=== PATIENT | female | born 2000 | race Caucasian/White ===

== ENCOUNTER 2020-08-24 12:53 | Emergency (ER) | payer OTHER, SELFPAY ==
[2020-08-24 12:54] VITALS: BP 156/67; PULSE 88; RESP 16; TEMP 36.4; O2SAT 100; BMI 36.6
--- NOTE | 2020-08-24 13:09 | ED.DCSUM_ITS ---
History of Present Illness Chief Complaint: Head Injury Informant: Patient Narrative: 19-year-old female states that on Sunday she hit her head on the bottom of her roommates bed. She states she had a goose egg near the vertex of her scalp. Since that time she has had nausea and dizziness and difficulty concentrating in class. [facility] who felt that since it is been so long with symptoms that she should come to emergency. No seizures. She has been able to sleep but still feels tired during the day. 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 Past Medical History - Allergies and Home Meds Allergies/Adverse Reactions: Allergies No Known Allergies Allergy (Verified 08/24/20 12:56) Prior records reviewed: Yes Past Medical History: None Surgical History: noncontributory Lives: - - [facility] Student Smoking Status: Never smoker Drugs: None Review of Systems General: Denies: Chills, Fever, Sweats Eyes: Denies: Visual changes - bilaterally, Diplopia ENT: Denies: Rhinorrhea, Sore throat Cardiovascular: Denies: Chest pain, Palpitations Respiratory: Denies: Dyspnea, Cough, Dyspnea on exertion Gastrointestinal: Reports: Nausea. Denies: Abdominal pain, Vomiting, Diarrhea, Melena, Hematochezia Genitourinary: Denies: Dysuria, Hematuria, Frequency Musculoskeletal: Denies: Back pain, Extremity Pain Skin: Denies: Rash, Wounds Neurological: Reports: Headache. Denies: Weakness, Numbness Physical Exam Vital Signs/Narrative: Vital Signs Temp Pulse Resp BP Pulse Ox 08/24/20 12:54 97.5 F L 88 16 156/67 H 100 Inital Vital Signs reviewed: Yes General: Well nourished, Well developed, No Acute Distress Head: Normocephalic, Atraumatic Eyes: Perrl, EOMI ENT: Moist mucous membranes, No rhinorrhea Neck: Supple, Nontender Cardiovascular: Regular rate, Regular rhythm, No murmurs Respiratory: No distress, CTA bilaterally, Chest nontender Abdomen: Soft, Nontender, Nondistended, Normal bowel sounds Back: Nontender, Normal Inspection Extremities: Nontender, No edema Skin: Normal color, No rash Neurological: Alert, Oriented x3, Cranial nerves II-XII grossly intact, Normal Strength, Normal Sensation, Normal Gait, - - normal FTN Psychological: Normal affect, Normal Mood ED Disposition - Plan for ED Patient: Disposition: Home or Assisted Living Diagnosis: Mild concussion Instructions: ED Concussion [facility] -
== END 2020-08-24 13:42 | disposition home or self-care (01) ==
LOC: ED 13:42
PROVIDERS: Emergency Provider Emergency Medicine
DX: S06.0X9A Concussion with loss of consciousness of unspecified duration, initial encounter (principal); W22.8XXA Striking against or struck by other objects, initial encounter
CPT/HCPCS: 99283

== ENCOUNTER 2021-12-28 14:39 | Outpatient (CLI) | payer BC, SELFPAY | END 2021-12-28 23:59 | disposition short-term general hospital (02) | LOC: IMMUN 14:43 | PROVIDERS: Visit Provider Family Medicine | DX: Z23 Encounter for immunization (principal) ==

== ENCOUNTER → 2025-03-12 | Outpatient (CLI) | payer OTHER, SELFPAY ==
[2025-03-12 17:56] LABS: Erythrocyte Sedimentation Rate 10 mm/hr (0-30)
[2025-03-12 18:04] LABS: Absolute Lymphocyte Count 2.27 X10^3/uL (0.83-4.51); Absolute Neutrophil Count 1.6 X10^3/uL (2.0-7.7); Basophil# 0.03 X10^3/uL; Basophil% 0.7 % (0-1); Eosinophil# 0.04 X10^3/uL; Eosinophils% 0.9 % (0-5); Hematocrit 38.7 % (37-47); Lymphocyte # 2.27 X10^3/ul (0.83-4.51); Mean Corp Hgb Conc 33.6 g/dL (32-36); Mean Corpuscular Hgb 28.6 pg (27.0-32.0); Mean Corpuscular Volume 85.1 fL (81-99); Mean Platelet Vol. 10.6 fl (6.2-12.0); Monocyte# 0.29 X10^3/uL; Monocyte% 6.8 % (0-10); NRBC Flagged by Analyzer 0 % (0-5); Neutrophil # 1.63 X10^3/uL (2.7-7.7); Neutrophil % 38.1 % (47-70); POSITIVE MORPHOLOGY YES; Platelet Count 169 K/mm3 (150-450); RBC Distribution Width CV 13.6 % (11.6-14.6); RBC Distribution Width SD 42.2 fl (35.1-43.9); Red Blood Count 4.55 M/mm3 (4.2-5.4); White Blood Count 4.3 K/mm3 (4.4-11.0)
[2025-03-12 18:09] LABS: Differential Indicated SCAN CRITERIA MET
[2025-03-12 18:54] LABS: Reactive Lymphocyte 1+
[2025-03-12 19:47] LABS: ALB/GLOB Ratio 1.6 RATIO (0.9-2.4); AST(SGOT) 81 U/L (<=31); Alanine Aminotransfer ALT/SGPT 88 U/L (<=34); Albumin, Serum 4.2 g/dL (3.5-5.0); Alkaline Phosphatase 81 U/L (35-104); Anion Gap 14 (5-15); BUN 8 mg/dL (4-19); BUN/Creat Ratio 10.4 RATIO (10-20); Calcium,Total 9.3 mg/dL (7.6-11.0); Carbon Dioxide 22.5 mmol/L (21.0-32.0); Chloride 102 mmol/L (98-108); Creatinine, Serum 0.78 mg/dL (0.70-1.20); EST Glomerular Filtration Rate 109 (>60); Globulin 2.6 g/dL (2.2-4.2); Glucose 108 mg/dL (70-99); Potassium 3.9 mmol/L (3.3-5.1); Protein, Total 6.8 g/dL (5.9-8.4); Sodium Level 138 mmol/L (133-145); Total Bilirubin 0.98 mg/dL (0.00-1.30)
[2025-03-16 13:08] LABS: ANTINUCLEAR ANTIBODIES DIRECT Negative (Negative)
== END | disposition home or self-care (01) ==
LOC: BFHLAB 14:24
PROVIDERS: PCP Family Medicine; Visit Provider Family Medicine
DX: Z00.00 Encounter for general adult medical examination without abnormal findings (principal); M79.10 Myalgia, unspecified site; R53.83 Other fatigue
CPT/HCPCS: 36415; 80053; 84443; 85025; 85652; 86038; 86140

== ENCOUNTER → 2025-06-29 | Outpatient (CLI) | payer OTHER, SELFPAY ==
[2025-06-29 17:42] LABS: Hematocrit 38.3 % (37-47); Hemoglobin 12.8 g/dL (12.0-15.0); Immature Granulocytes Count 0.020 X10^3/uL (0.0-0.0); Mean Corp Hgb Conc 33.4 g/dL (32-36); Mean Corpuscular Volume 83.8 fL (81-99); Mean Platelet Vol. 10.4 fl (6.2-12.0); NRBC Flagged by Analyzer 0 % (0-5); Platelet Count 292 K/mm3 (150-450); RBC Distribution Width CV 13.5 % (11.6-14.6); RBC Distribution Width SD 41.1 fl (35.1-43.9); Red Blood Count 4.57 M/mm3 (4.2-5.4); White Blood Count 6.0 K/mm3 (4.4-11.0)
[2025-06-29 18:14] LABS: AST(SGOT) 27 U/L (<=31); Alanine Aminotransfer ALT/SGPT 41 U/L (<=34); Albumin, Serum 4.3 g/dL (3.5-5.0); Alkaline Phosphatase 72 U/L (35-104); Anion Gap 14 (5-15); BUN 14 mg/dL (4-19); BUN/Creat Ratio 18.6 RATIO (10-20); CRP 9.31 mg/L (0.0-3.0); Calcium,Total 9.7 mg/dL (7.6-11.0); Carbon Dioxide 22.7 mmol/L (21.0-32.0); Chloride 101 mmol/L (98-108); Globulin 2.6 g/dL (2.2-4.2); Glucose 107 mg/dL (70-99); Potassium 3.8 mmol/L (3.3-5.1)
--- OUTSIDE RECORDS SUMMARY | 2025-06-29 22:39 | XMS RPT_ITS | CCD ---
Author Organization [facility] Care Team Providers Care Prop Attendant Name Role Phone Rick Purvis Primary Care Provider RICK PURVIS Referring Unavailable HYUNRICK OLMOS Primary Care Unavailable RICK PURVIS Referring Unavailable HYUNRICK OLMOS Primary Care Unavailable VEDA CORADO Admitting Unavail able VEDA CORADO Attending Unavail able RICK PURVIS Primary Care Unavailable RICK PURVIS Referring Unavailable RICK PURVIS Primary Care Unavailable Rick Purvis DO Primary Care Provider Dr. Che Aguilar MD Primary Care Provider Dr. Che Aguilar MD Attending Provider Che Aguilar Attending Unavailable Che Aguilar Primary Care Unavailable Allergies Allergy Classification Reported Allergen(s) Allergy Type Date of Onset Reaction(s) Facility (1 source) Ethinyl Estradiol / norelgestromin Drug Allergy 11-10-2022 Headaches [facility] Medications Current Medications Medication Drug Class(es) Dates Sig (Normalized) Sig (Original) acetaminophen 300 mg / codeine phosphate 30 mg oral tablet (2 sources) Opioid Agonist Start: 02-10-2016 take 1 tablet by mouth every four hours as needed for pain acetaminophen-cod eine (TYLENOL/CODEINE #3) 300-30 MG per tablet Take 1 tablet by mouth every 4 hours as needed for Pain 12 tablet 0 02/10/2016 Active citalopram 20 mg oral tablet (3 sources) Serotonin Reuptake Inhibitor Start: 02-24-2023 take 1 tablet by mouth once daily citalopram (CELEXA) 20 MG tablet Take 1 tablet by mouth daily 0 02/24/2023 Active Start: 04-30-2022 citalopram (CE AMY) 10 MG tablet 20 mg 0 04/30/2022 Active elagolix 150 mg oral tablet (1 source) Start: 04-25-2023 take 1 tablet by mouth once daily Elagolix Sodium (ORILISSA) 150 MG TABS Take 150 mg by mouth daily 30 tablet 3 04/25/2023 Active ketorolac tromethamine 10 mg oral tablet (1 source) Nonsteroidal Anti-inflammatory Drug, Cyclooxygenase Inhibitor Start: 04-13-2023 End: 04-12-2024 take 1 tablet by mouth every six hours as needed for pain ketorolac (TORADOL) 10 MG tablet Take 1 tablet by mouth every 6 hours as needed for Pain 20 tablet 0 04/13/2023 04/12/2024 Active loratadine 10 mg oral capsule (5 sources) take 1 capsule by mouth once daily loratadine (CLARITIN) 10 MG capsule Take 10 mg by mouth daily 0 Active naproxen 500 mg oral tablet (2 sources) Nonsteroidal Anti-inflammatory Drug Start: 02-10-2016 take 1 tablet by mouth twice daily naproxen (NAPROSYN) 500 MG tablet Take 1 tablet by mouth 2 times daily 10 tablet 0 02/10/2016 Active Probiotic Product (PROBIOTIC PO) (1 source) Probiotic Product (PROBIOTIC PO) Take by mouth 0 Active Problems Problem Classification Problem Date Documented Date Episodic/Chronic Abdominal pain (1 source) Right lower quadrant pain; Translations: [Right lower quadrant pain] Episodic Complications of surgical procedures or medical care (2 sources) Unspecified adverse effect of drug or medicament, initial encounter; Translations: [Unspecified adverse effect of drug or medicament, initial encounter] Onset: 04-27-2023 Episodic Headache; including migraine (1 source) Headache; Translations: [Nonintractable headache, unspecified chronicity pattern, unspecified headache type] Episodic Headache; including migraine (1 source) Headache; including migraine; Translations: [Headache, unspecified] Onset: 10-02-2022 Intracranial injury (1 source) Concussion injury of body structure; Translations: [Concussion] 08-25-2020 Episodic Other nervous system disorders (1 source) Other acute postprocedural pain; Translations: [Other acute postprocedural pain] Onset: 04-13-2023 Episodic Results Test Name Value Interpretation Reference Range Facility ANTINUCLEAR ANTIBODIES DIREC Ton 03-16-2025 EVERARDO,DIRECT Negative Normal Negative [facility] Comment on above: Result Comment: Perf ormed at: [email or web address] [place] [address] [place], [place] [id number] Law Enforcement Officer: Jarod Devlin PhD, Phone: [phone] Performed By: #### L 3100.5475, L500.4050, L100.0100, L501.6710, L501.9520, L101.9900 #### [facility] [address] [place], [place], [id number] EVERARDO serumOrdered By: Che Aguilar on 03-12-2025 Anti-Nuclear Antibody Screen Negative Negative [facility] Comment on above: Performed at: [email or web address] [id number] [place], [place] [id number] Director: Jarod Devlin PhD, Phone: [phone] Absolute neutrophil countOrd ered By: Che Aguilar on 03-12-2025 Neutrophils (Bld) [#/Vol] 1.6 10*3/uL Low 2.0-7.7 [facility] Anion gap in Serum or Plasma Ordered By: Che Aguilar on 03-12-2025 Anion gap [Moles/Vol] 14 mmol/L 5-15 [facility] BUN/creatinine ratioOrdered By: Che Aguilar on 03-12-2025 Urea nitrogen/Creatinine [Mass ratio] 10.4 mg/mg 10-20 [facility] Basophil percentageOrdered B y: Che Aguilar on 03-12-2025 Basophils/100 WBC (Bld) 0.7 % 0-1 [facility] Bilirubin, totalOrdered By: Che Aguilar on 03-12-2025 Bilirubin [Mass/Vol] 0.98 mg/dL 0.00-1.30 [facility] CBC W/Diff, Automatedon 02-24 REACTIVE LYMPH 1+ Normal [facility] Comment on above: Performed By: #### L 3100.5475, L500.4050, L100.0100, L501.6710, L501.9520, L101.9900 #### [facility] [address] [place], [address] CRPon 03-12-2025 C-REACTIVE PROT 22.10 mg/L High 0.0-3.0 [facility] Comment on above: Performed By: #### L 3100.5475, L500.4050, L100.0100, L501.6710, L501.9520, L101.9900 #### [facility] [address] [place], [address] CRP [Mass/Vol]Ordered By: Ermias Aguilar on 03-12-2025 C-Reactive Protein Extended Range 22.10 mg/L High 0.0-3.0 [facility] Carbon dioxide, total [Moles /volume] in Central venous bloodOrdered By: Che Aguilar on 03-12-2025 CO2 [Moles/Vol] 22.5 mmol/L 21.0-32.0 [facility] Chloride assayOrdered By: Ermias Aguilar on 03-12-2025 Chloride [Moles/Vol] 102 mmol/L 98-108 [facility] Comprehensive Metabolic Prof ilon 03-12-2025 Albumin [Mass/Vol] 4.2 g/dL Normal 3.5-5.0 [facility] Comment on above: Performed By: #### L 3100.5475, L500.4050, L100.0100, L501.6710, L501.9520, L101.9900 #### [facility] [address] [place], [address] Albumin/Globulin [Mass ratio] 1.6 {ratio} Normal 0.9-2.4 [facility] Comment on above: Performed By: #### L 3100.5475, L500.4050, L100.0100, L501.6710, L501.9520, L101.9900 #### [facility] [address] [place], [address] ALK PHOS 81 U/L Normal 35-104 [facility] Comment on above: Performed By: #### L 3100.5475, L500.4050, L100.0100, L501.6710, L501.9520, L101.9900 #### [facility] [address] [place], [address] ALT [Catalytic activity/Vol] 88 U/L High <=34 [facility] Comment on above: Performed By: #### L 3100.5475, L500.4050, L100.0100, L501.6710, L501.9520, L101.9900 #### [facility] [address] [place], [address] AST [Catalytic activity/Vol] 81 U/L High <=31 [facility] Comment on above: Performed By: #### L 3100.5475, L500.4050, L100.0100, L501.6710, L501.9520, L101.9900 #### [facility] [address] [place], [address] Bilirubin [Mass/Vol] 0.98 mg/dL Normal 0.00-1.30 [facility] Comment on above: Performed By: #### L 3100.5475, L500.4050, L100.0100, L501.6710, L501.9520, L101.9900 #### [facility] [address] [place], [address] BUN/CRE 10.4 RATIO Normal 10-20 [facility] Comment on above: Performed By: #### L 3100.5475, L500.4050, L100.0100, L501.6710, L501.9520, L101.9900 #### [facility] [address] [place], [address] Calcium [Mass/Vol] 9.3 mg/dL Normal 7.6-11.0 [facility] Comment on above: Performed By: #### L 3100.5475, L500.4050, L100.0100, L501.6710, L501.9520, L101.9900 #### [facility] [address] [place], [address] Chloride [Moles/Vol] 102 mmol/L Normal 98-108 [facility] Comment on above: Performed By: #### L 3100.5475, L500.4050, L100.0100, L501.6710, L501.9520, L101.9900 #### [facility] [address] [place], [address] CO2 [Moles/Vol] 22.5 mmol/L Normal 21.0-32.0 [facility] Comment on above: Performed By: #### L 3100.5475, L500.4050, L100.0100, L501.6710, L501.9520, L101.9900 #### [facility] [address] [place], [address] Creatinine [Mass/Vol] 0.78 mg/dL Normal 0.70-1.20 [facility] Comment on above: Performed By: #### L 3100.5475, L500.4050, L100.0100, L501.6710, L501.9520, L101.9900 #### [facility] [address] [place], [address] GAP 14 Normal 5-15 [facility] Comment on above: Performed By: #### L 3100.5475, L500.4050, L100.0100, L501.6710, L501.9520, L101.9900 #### [facility] [address] [place], [address] GFR/1.73 sq M.predicted among non-blacks MDRD (S/P/Bld) [Vol rate/Area] 109 mL/min/{1.73_m2} Normal >60 [facility] Comment on above: Result Comment: mL/m in/1.73m2 CKD-EPI Creatinine Equation (2020) Performed By: #### L 3100.5475, L500.4050, L100.0100, L501.6710, L501.9520, L101.9900 #### [facility] [address] [place], [address] Globulin (S) [Mass/Vol] 2.6 g/dL Normal 2.2-4.2 [facility] Comment on above: Performed By: #### L 3100.5475, L500.4050, L100.0100, L501.6710, L501.9520, L101.9900 #### [facility] [address] [place], [address] Glucose [Mass/Vol] 108 mg/dL High 70-99 [facility] Comment on above: Performed By: #### L 3100.5475, L500.4050, L100.0100, L501.6710, L501.9520, L101.9900 #### [facility] [address] [place], [address] Potassium [Moles/Vol] 3.9 mmol/L Normal 3.3-5.1 [facility] Comment on above: Performed By: #### L 3100.5475, L500.4050, L100.0100, L501.6710, L501.9520, L101.9900 #### [facility] [address] [place], [address] Sodium [Moles/Vol] 138 mmol/L Normal 133-145 [facility] Comment on above: Performed By: #### L 3100.5475, L500.4050, L100.0100, L501.6710, L501.9520, L101.9900 #### [facility] [address] [place], [address] T PROT 6.8 g/dL Normal 5.9-8.4 [facility] Comment on above: Performed By: #### L 3100.5475, L500.4050, L100.0100, L501.6710, L501.9520, L101.9900 #### [facility] [address] [place], [address] Urea nitrogen [Mass/Vol] 8 mg/dL Normal 4-19 [facility] Comment on above: Performed By: #### L 3100.5475, L500.4050, L100.0100, L501.6710, L501.9520, L101.9900 #### [facility] [address] [place], [place], [address] Eosinophil percentageOrdered By: Che Aguilar on 03-12-2025 Eosinophils/100 WBC (Bld) 0.9 % 0-5 [facility] Erythrocyte Sed Rateon 03-12 SED RATE 10 mm/hr Normal 0-30 [facility] Comment on above: Performed By: #### L 3100.5475, L500.4050, L100.0100, L501.6710, L501.9520, L101.9900 #### [facility] [address] [place], [address] Erythrocyte distribution wid th (RBC) [Ratio]Ordered By: Che Aguilar on 03-12-2025 Erythrocyte distribution width (RBC) [Entitic vol] 42.2 fL 35.1-43.9 [facility] Erythrocyte distribution wid th ratioOrdered By: Che Aguilar on 03-12-2025 Erythrocyte distribution width (RBC) [Ratio] 13.6 % 11.6-14.6 [facility] Erythrocyte sedimentation ra teOrdered By: Che Aguilar on 03-12-2025 ESR (Bld) [Velocity] 10 mm/h 0-30 [facility] GFR/1.73 sq M.predicted emi g non-blacks MDRD (S/P/Bld) [Vol rate/Area]Ordered By: Che Aguilar on 03-12-2025 Estimated GFR (MDRD) Non-Af Amer 109 >60 [facility] Comment on above: mL/min/1.73m2 CKD-EP I Creatinine Equation (2020) Hematocrit Auto (Bld) [Volum e fraction]Ordered By: Che Aguilar on 03-12-2025 Hematocrit (Bld) [Volume fraction] 38.7 % 37-47 [facility] Hemoglobin measurementOrdere d By: Che Aguilar on 03-12-2025 Hemoglobin (Bld) [Mass/Vol] 13.0 g/dL 12.0-15.0 [facility] Immature granulocytes/100 WB C Auto (Bld)Ordered By: Che Aguilar on 03-12-2025 Immature granulocytes/100 WBC (Bld) 0.500 % 0.0-0.9 [facility] Comment on above: IG% - Immature Granu locytes (promyelocytes, myelocytes and metamyelocytes) > 1% indicates that a LEFT SHIFT is Present. Laboratory - Chemistry and C hemistry - challengeOrdered By: Che Aguilar on 03-12-2025 AST [Catalytic activity/Vol] 81 U/L High <32 [facility] Lymphocytes Auto (Unsp spec) [#/Vol]Ordered By: Che Aguilar on 03-12-2025 Lymphocytes (Bld) [#/Vol] 2.27 10*3/uL 0.83-4.51 [facility] Lymphocytes/100 WBC Auto (Un sp spec)Ordered By: Che Aguilar on 03-12-2025 Lymphocytes/100 WBC (Bld) 53.0 % High 19-41 [facility] MCV (mean corpuscular volume ) determinationOrdered By: Che Aguilar on 03-12-2025 MCV (RBC) [Entitic vol] 85.1 fL 81-99 [facility] Mean corpuscular hemoglobin (MCH) determinationOrdered By: Che Aguilar on 03-12-2025 MCH (RBC) [Entitic mass] 28.6 pg 27.0-32.0 [facility] Mean corpuscular hemoglobin concentration (MCHC) determinationOrdered By: Che Aguilar on 03-12-2025 MCHC (RBC) [Mass/Vol] 33.6 g/dL 32-36 [facility] Mean platelet volume determi nationOrdered By: Che Aguilar on 03-12-2025 Platelet mean volume (Bld) [Entitic vol] 10.6 fL 6.2-12.0 [facility] Monocyte percentageOrdered B y: Che Aguilar on 03-12-2025 Monocytes/100 WBC (Bld) 6.8 % 0-10 [facility] Neutrophil percentageOrdered By: Che Aguilar on 03-12-2025 Neutrophils/100 WBC (Bld) 38.1 % Low 47-70 [facility] Nucleated red blood cell per centageOrdered By: Che Aguilar on 03-12-2025 Nucleated RBC/100 WBC (Bld) [Ratio] 0 % 0-5 [facility] Platelet countOrdered By: Ermias Aguilar on 03-12-2025 Platelets (Bld) [#/Vol] 169 10*3/uL 150-450 [facility] Potassium (Unsp spec) [Mass/ Vol]Ordered By: Che Aguilar on 03-12-2025 Potassium [Moles/Vol] 3.9 mmol/L 3.3-5.1 [facility] RBC Auto (Bld) [#/Vol]Ordere d By: Che Aguilar on 03-12-2025 RBC (Bld) [#/Vol] 4.55 10*6/uL 4.2-5.4 [facility] Reactive lymphocyte countOrd ered By: Che Aguilar on 03-12-2025 Reactive Lymphocytes 1+ [facility] Serum creatinine measurement (mass/volume)Ordered By: Che Aguilar on 03-12-2025 Creatinine [Mass/Vol] 0.78 mg/dL 0.70-1.20 [facility] Serum globulin measurementOr dered By: Che Aguilar on 03-12-2025 Globulin (S) [Mass/Vol] 2.6 g/dL 2.2-4.2 [facility] Serum glucose measurement (m ass/volume)Ordered By: Che Aguilar on 03-12-2025 Glucose [Mass/Vol] 108 mg/dL High 70-99 [facility] Serum or plasma alanine king otransferase (ALT) measurementOrdered By: Che Aguilar on 03-12-2025 ALT [Catalytic activity/Vol] 88 U/L High <35 [facility] Serum or plasma albumin cesia urement (mass/volume)Ordered By: Che Aguilar on 03-12-2025 Albumin [Mass/Vol] 4.2 g/dL 3.5-5.0 [facility] Serum or plasma albumin/glob ulin mass ratioOrdered By: Che Aguilar on 03-12-2025 Albumin/Globulin [Mass ratio] 1.6 {ratio} 0.9-2.4 [facility] Serum or plasma alkaline nathalie sphatase measurementOrdered By: Che Aguilar on 03-12-2025 ALP [Catalytic activity/Vol] 81 U/L 35-104 [facility] Serum or plasma calcium cesia urement (mass/volume)Ordered By: Che Aguilar on 03-12-2025 Calcium [Mass/Vol] 9.3 mg/dL 7.6-11.0 [facility] Serum or plasma urea nitroge n measurement (mass/volume)Ordered By: Che Aguilar on 03-12-2025 Urea nitrogen [Mass/Vol] 8 mg/dL 4-19 [facility] Sodium levelOrdered By: Lucie Aguilar on 03-12-2025 Sodium [Moles/Vol] 138 mmol/L 133-145 [facility] TSH DL <= 0.005 mIU/L QnOrde red By: Che Aguilar on 03-12-2025 Thyroid Stimulating Hormone (TSH) 2.580 uIU/mL 0.300-4.200 [facility] Thyroid Stim Hormone (TSH)on 03-12-2025 TSH 2.580 uIU/mL Normal 0.300-4.200 [facility] Comment on above: Performed By: #### L 8240.5469, L500.4050, L100.0100, L501.6748, L501.9334, L101.9900 #### [facility] [address] [place], [address] Total proteinOrdered By: Felipe Barnhartmihir on 03-12-2025 Protein [Mass/Vol] 6.8 g/dL 5.9-8.4 [facility] White blood cell (WBC) count Ordered By: Che Jeff on 03-12-2025 WBC (Bld) [#/Vol] 4.3 10*3/uL Low 4.4-11.0 [facility] Comp Metabolic Profon 2022 Albumin [Mass/Vol] 4.7 g/dL Normal 3.5-5.2 [facility] Comment on above: Performed By: #### C P #### [facility] [address] [place] [address] Law Enforcement Officer: Claudio Rico MD Albumin/Glob Ratio 1.7 Normal 1.0-2.5 [facility] Comment on above: Performed By: #### C P #### [address] [place] [address] Law Enforcement Officer: Claudio Rico MD Alkaline Phos 75 U/L Normal 35-104 [facility] Comment on above: Performed By: #### C P #### [facility] [address] [place] [address] Law Enforcement Officer: Claudio Rico MD ALT [Catalytic activity/Vol] 21 U/L Normal 5-33 [facility] Comment on above: Performed By: #### C P #### [facility] [address] [place] [address] Law Enforcement Officer: Claudio Rcio MD Anion gap [Moles/Vol] 10 mmol/L Normal 9-17 [facility] Comment on above: Performed By: #### C P #### [facility] [address] [place], [place] [address] Law Enforcement Officer: Claudio Rico MD AST [Catalytic activity/Vol] 21 U/L Normal <32 [facility] Comment on above: Performed By: #### C P #### [facility] [address] [place], [place] [id number] Law Enforcement Officer: Claudio Rico MD Bilirubin [Mass/Vol] 0.9 mg/dL Normal 0.3-1.2 [facility] Comment on above: Performed By: #### C P #### [facility] [address] [place], [place] [id number] Law Enforcement Officer: Claudio Rico MD BUN/CRE Ratio 19 Normal 9-20 [facility] Comment on above: Performed By: #### C P #### [facility] [address] [place], [place] [id number] Law Enforcement Officer: Claudio Rico MD Calcium [Mass/Vol] 9.7 mg/dL Normal 8.6-10.4 [facility] Comment on above: Performed By: #### C P #### [facility] [address] [place] [address] Law Enforcement Officer: Claudio Rioc MD Chloride [Moles/Vol] 104 mmol/L Normal 98-107 [facility] Comment on above: Performed By: #### C P #### [facility] [address] [place], [place] [id number] Law Enforcement Officer: Claudio Rico MD CO2 [Moles/Vol] 27 mmol/L Normal 20-31 [facility] Comment on above: Performed By: #### C P #### [facility] [address] [place], [place] [id number] Law Enforcement Officer: Claudio Rico MD Creatinine [Mass/Vol] 0.67 mg/dL Normal 0.50-0.90 [facility] Comment on above: Performed By: #### C P #### [facility] [address] [place] [address] Law Enforcement Officer: Claudio Rico MD GFR/1.73 sq M.predicted among non-blacks MDRD (S/P/Bld) [Vol rate/Area] mL/min/{1.73_m2} Normal >60 [facility] Comment on above: Result Comment: These results are not intended for use in patients <18 years of age. eGFR results are calculated without a race factor using the 2020 CKD-EPI equation. Careful clinical correlation is recommended, particularly when comparing to results calculated using previous equations. The CKD-EPI equation is less accurate in patients with extremes of muscle mass, extra-renal metabolism of creatine, excessive creatine ingestion, or following therapy that affects renal tubular secretion. Performed By: #### C P #### [facility] [address] [place] [address] Law Enforcement Officer: Claudio Rico MD Glucose [Mass/Vol] 88 mg/dL Normal 70-99 [facility] Comment on above: Performed By: #### C P #### [facility] [address] [place] [address] Law Enforcement Officer: Claudio Rico MD Potassium [Moles/Vol] 4.5 mmol/L Normal 3.7-5.3 [facility] Comment on above: Performed By: #### C P #### [facility] [address] [place] [address] Law Enforcement Officer: Claudio Rico MD Protein [Mass/Vol] 7.5 g/dL Normal 6.4-8.3 [facility] Comment on above: Performed By: #### C P #### [facility] [address] [place] [address] Law Enforcement Officer: Claudio Rico MD Sodium [Moles/Vol] 141 mmol/L Normal 135-144 [facility] Comment on above: Performed By: #### C P #### [facility] [address] [place], [place] [id number] Law Enforcement Officer: Claudio Rico MD Urea nitrogen [Mass/Vol] 13 mg/dL Normal 6-20 [facility] Comment on above: Performed By: #### C P #### [facility] [address] [place] [address] Law Enforcement Officer: Claudio Rico MD Comprehensive Metabolic Pane [facility] 04-27-2023 Albumin [Mass/Vol] 4.7 g/dL 3.5 - 5.2 g/dL [facility] Albumin/Globulin [Mass ratio] 1.7 {ratio} 1.0 - 2.5 [facility] ALP [Catalytic activity/Vol] 75 U/L 35 - 104 U/L [facility] ALT [Catalytic activity/Vol] 21 U/L 5 - 33 U/L [facility] Anion gap [Moles/Vol] 10 mmol/L 9 - 17 mmol/L [facility] AST [Catalytic activity/Vol] 21 U/L NINF - 32 U/L [facility] Bilirubin [Mass/Vol] 0.9 mg/dL 0.3 - 1 .2 mg/dL [facility] Calcium [Mass/Vol] 9.7 mg/dL 8.6 - 10. 4 mg/dL [facility] Chloride [Moles/Vol] 104 mmol/L 98 - 10 7 mmol/L [facility] CO2 [Moles/Vol] 27 mmol/L 20 - 31 mmol/L [facility] Creatinine [Mass/Vol] 0.67 mg/dL 0.50 - 0.90 mg/dL [facility] GFR/1.73 sq M.predicted MDRD (S/P/Bld) [Vol rate/Area] - PINF [facility] Comment on above: These results are not intended for use in patients <18 years of age. eGFR results are calculated without a race factor using the 2020 CKD-EPI equation. Careful clinical correlation is recommended, particularly when comparing to results calculated using previous equations. The CKD-EPI equation is less accurate in patients with extremes of muscle mass, extra-renal metabolism of creatine, excessive creatine ingestion, or following therapy that affects renal tubular secretion. Glucose [Mass/Vol] 88 mg/dL 70 - 99 mg/dL [facility] Potassium [Moles/Vol] 4.5 mmol/L 3.7 - 5.3 mmol/L [facility] Protein [Mass/Vol] 7.5 g/dL 6.4 - 8.3 g/dL [facility] Sodium [Moles/Vol] 141 mmol/L 135 - 144 mmol/L [facility] Urea nitrogen [Mass/Vol] 13 mg/dL 6 - 20 mg/d L [facility] Urea nitrogen/Creatinine [Mass ratio] 19 mg/mg 9 - 20 [facility] HCG, ,Urineon 04-13 Beta HCG ( test) Ql (U) Negative Normal NEG [facility] Comment on above: Result Comment: Spec imens with hCG levels near the threshold of the test (25 mIU/mL) may give a negative or indeterminate result. In such cases, another test should be performed with a new specimen in 48-72 hours. If early is suspected clinically in this setting, correlation with quantitative serum b-hCG level is suggested. [facility] [employer] has confirmed the use of plasma for this test. This has not been cleared or approved by the U.S. Food and Drug Administration. The FDA has determined that such clearance is not necessary. Performed By: #### U HCG #### [facility] [address] [place] [address] Law Enforcement Officer: Claudio Rico MD CT HEAD WO CONTRASTon 2021 CT HEAD WO CONTRAST EXAMINATION: CT OF THE HEAD WITHOUT CONTRAST 10/02/2022 5:34 pm TECHNIQUE: CT of the head was performed without the administration of intravenous contrast. Automated exposure control, iterative reconstruction, and/or weight based adjustment of the mA/kV was utilized to reduce the radiation dose to as low as reasonably achievable. COMPARISON: None. HISTORY: ORDERING SYSTEM PROVIDED HISTORY: Nonintractable headache, unspecified chronicity pattern, unspecified headache type TECHNOLOGIST PROVIDED HISTORY: Is the patient ?->No FINDINGS: BRAIN/VENTRICLES: There is no acute intracranial hemorrhage, mass effect, or midline shift. There is satisfactory overall sanchez-white matter differentiation. The ventricular structures are symmetric and unremarkable. The infratentorial structures are unremarkable. ORBITS: The visualized portion of the orbits demonstrate no acute abnormality. SINUSES: The visualized paranasal sinuses and mastoid air cells demonstrate no acute abnormality. SOFT TISSUES/SKULL: No acute abnormality of the visualized skull or soft tissues. IMPRESSION: No acute intracranial abnormality. Interpreted by: Peter Gaytan MD Signed by: Peter Gaytan MD 10/03/22 Final result Normal [facility] No acute intracranial abnormality. [facility] EXAMINATION: CT OF THE HEAD WITHOUT CONTRAST 10/02/2022 5:34 pm TECHNIQUE: CT of the head was performed without the administration of intravenous contrast. Automated exposure control, iterative reconstruction, and/or weight based adjustment of the mA/kV was utilized to reduce the radiation dose to as low as reasonably achievable. COMPARISON: None. HISTORY: ORDERING SYSTEM PROVIDED HISTORY: Nonintractable headache, unspecified chronicity pattern, unspecified headache type TECHNOLOGIST PROVIDED HISTORY: Is the patient ?->No FINDINGS: BRAIN/VENTRICLES: There is no acute intracranial hemorrhage, mass effect, or midline shift. There is satisfactory overall sanchez-white matter differentiation. The ventricular structures are symmetric and unremarkable. The infratentorial structures are unremarkable. ORBITS: The visualized portion of the orbits demonstrate no acute abnormality. SINUSES: The visualized paranasal sinuses and mastoid air cells demonstrate no acute abnormality. SOFT TISSUES/SKULL: No acute abnormality of the visualized skull or soft tissues. [facility] Peter Gaytan MD - 10/03/2022 EXAMINATION: CT OF THE HEAD WITHOUT CONTRAST 10/02/2022 5:34 pm TECHNIQUE: CT of the head was performed without the administration of intravenous contrast. Automated exposure control, iterative reconstruction, and/or weight based adjustment of the mA/kV was utilized to reduce the radiation dose to as low as reasonably achievable. COMPARISON: None. HISTORY: ORDERING SYSTEM PROVIDED HISTORY: Nonintractable headache, unspecified chronicity pattern, unspecified headache type TECHNOLOGIST PROVIDED HISTORY: Is the patient ?->No FINDINGS: BRAIN/VENTRICLES: There is no acute intracranial hemorrhage, mass effect, or midline shift. There is satisfactory overall sanchez-white matter differentiation. The ventricular structures are symmetric and unremarkable. The infratentorial structures are unremarkable. ORBITS: The visualized portion of the orbits demonstrate no acute abnormality. SINUSES: The visualized paranasal sinuses and mastoid air cells demonstrate no acute abnormality. SOFT TISSUES/SKULL: No acute abnormality of the visualized skull or soft tissues. IMPRESSION: No acute intracranial abnormality. [facility]EL [facility] [employer] Work Phone: CT HEAD WO CONTRASTOrdered B y: Peter Gaytan on 10-03-2022 [facility] [employer] Work Phone: CT HEAD WO CONTRASTon 2021 Radiology Study observation (narrative) [facility]EL [facility] Work Phone: Comp Metabolic Profon 2021 (cont.) Normal [facility] Comment on above: Result Comment: Aver age GFR for 20-29 years old: 116 mL/min/1.73sq m Chronic Kidney Disease: <60 mL/min/1.73sq m Kidney failure: <15 mL/min/1.73sq m eGFR calculated using average adult body mass. Additional eGFR calculator available at: http://www.[employer].RENTISH/multiple_crcl_2012.htm Performed By: #### C P #### [facility] [address] [place] [address] [place] [address] Law Enforcement Officer: Claudio Rico MD Albumin [Mass/Vol] 4.4 g/dL Normal 3.5-5.2 [facility] Comment on above: Performed By: #### C P #### [facility] [address] [place] [address] Law Enforcement Officer: Claudio Rico MD Albumin/Glob Ratio 1.7 Normal 1.0-2.5 [facility] Comment on above: Performed By: #### C P #### [address] [place] [address] Law Enforcement Officer: Claudio Rico MD Alkaline Phos 55 U/L Normal 35-104 [facility] Comment on above: Performed By: #### C P #### [facility] [address] [place], [place] [id number] Law Enforcement Officer: Claudio Rico MD ALT [Catalytic activity/Vol] 25 U/L Normal 5-33 [facility] Comment on above: Performed By: #### C P #### [facility] [address] [place], [place] [id number] Law Enforcement Officer: Claudio Rico MD Anion gap [Moles/Vol] 8 mmol/L Low 9-17 [facility] Comment on above: Performed By: #### C P #### [facility] [address] [place], [place] [id number] Law Enforcement Officer: Claudio Rico MD AST [Catalytic activity/Vol] 18 U/L Normal <32 [facility] Comment on above: Performed By: #### C P #### [facility] [address] [place], [place] [id number] Law Enforcement Officer: Claudio Rico MD Bilirubin [Mass/Vol] 0.48 mg/dL Normal 0.3-1.2 [facility] Comment on above: Performed By: #### C P #### [facility] [address] [place], [place] [id number] Law Enforcement Officer: Claudio Rico MD BUN/CRE Ratio 16 Normal 9-20 [facility] Comment on above: Performed By: #### C P #### [facility] [address] [place], [place] [id number] Law Enforcement Officer: Claudio Rico MD Calcium [Mass/Vol] 9.6 mg/dL Normal 8.6-10.4 [facility] Comment on above: Performed By: #### C P #### [facility] [address] [place], [place] [id number] Law Enforcement Officer: Claudio Rico MD Chloride [Moles/Vol] 98 mmol/L Normal 98-107 [facility] Comment on above: Performed By: #### C P #### [facility] [address] [place], [place] [id number] Law Enforcement Officer: Claudio Rico MD CO2 [Moles/Vol] 28 mmol/L Normal 20-31 [facility] Comment on above: Performed By: #### C P #### [facility] [address] [place], [place] [id number] Law Enforcement Officer: Claudio Rico MD Creatinine [Mass/Vol] 0.70 mg/dL Normal 0.50-0.90 [facility] Comment on above: Performed By: #### C P #### [facility] [address] [place], [place] 0578383 Law Enforcement Officer: Claudio Rico MD GFR, Amer >60 Normal >60 [facility] Comment on above: Performed By: #### C P #### [facility] [address] [place], [place] [id number] Law Enforcement Officer: Claudio Rico MD GFR,non Amer >60 Normal >60 [facility] Comment on above: Performed By: #### C P #### [facility] [address] [place], [place] [id number] Law Enforcement Officer: Claudio Rico MD Glucose [Mass/Vol] 97 mg/dL Normal 70-99 [facility] Comment on above: Performed By: #### C P #### [facility] [address] [place], [place] [id number] Law Enforcement Officer: Claudio Rioc MD Potassium [Moles/Vol] 4.2 mmol/L Normal 3.7-5.3 [facility] Comment on above: Performed By: #### C P #### [facility] [address] [place], [place] [id number] Law Enforcement Officer: Claudio Rico MD Protein [Mass/Vol] 7.0 g/dL Normal 6.4-8.3 [facility] Comment on above: Performed By: #### C P #### [facility] [address] [place] [address] Law Enforcement Officer: Claudio Rico MD Sodium [Moles/Vol] 134 mmol/L Low 135-144 [facility] Comment on above: Performed By: #### C P #### [facility] [address] [place] [address] Law Enforcement Officer: Claudio Rico MD Staging: Normal [facility] Comment on above: Result Comment: Stag e 1: Some kidney damage normal GFR Stage 2: Mild kidney damage GFR 60-89 Stage 3: Moderate kidney damage GFR 30-59 Stage 4: Severe kidney damage GFR 15-29 Stage 5: Severe kidney damage GFR <15 ESRD - chronic treatment by dialysis or transplant Performed By: #### C P #### [facility] [address] [place], [facility] Law Enforcement Officer: Claudio Rico MD Urea nitrogen [Mass/Vol] 11 mg/dL Normal 6-20 [facility] Comment on above: Performed By: #### C P #### [facility] [address] [place] [address] Law Enforcement Officer: Claudio Rico MD [facility] 07-13-2022 Albumin [Mass/Vol] 4.4 g/dL 3.5 - 5.2 g/dL [facility] Albumin/Globulin [Mass ratio] 1.7 {ratio} 1 - 2.5 [facility] ALP (Bld) [Catalytic activity/Vol] 55 U/L 35 - 104 U/L [facility] ALT [Catalytic activity/Vol] 25 U/L 5 - 33 U/L [facility] Anion gap [Moles/Vol] 8 mmol/L Low 9 - 17 mmol/L [facility] AST [Catalytic activity/Vol] 18 U/L NINF - 32 U/L [facility] Bilirubin [Mass/Vol] 0.48 mg/dL 0.3 - 1 .2 mg/dL [facility] Calcium [Mass/Vol] 9.6 mg/dL 8.6 - 10. 4 mg/dL [facility] Chloride [Moles/Vol] 98 mmol/L 98 - 10 7 mmol/L [facility] CO2 [Moles/Vol] 28 mmol/L 20 - 31 mmol/L [facility] Creatinine [Mass/Vol] 0.7 mg/dL 0.5 - 0.9 mg/dL [facility] Free PSA/Total PSA [Mass fraction] 7.0 g/dL 6.4 - 8.3 g/dL [facility] GFR >60 60 - PI NF mL/min [facility] GFR Non- >60 60 - PINF mL/min [facility] Glucose [Mass/Vol] 97 mg/dL 70 - 99 mg/dL [facility] Interpretation and review of laboratory results Abnormal [facility] Potassium [Moles/Vol] 4.2 mmol/L 3.7 - 5.3 mmol/L [facility] Sodium [Moles/Vol] 134 mmol/L Low 135 - 144 mmol/L [facility] Urea nitrogen (BldV) [Mass/Vol] 11 mg/dL 6 - 20 mg/dL [facility] Urea nitrogen/Creatinine (Bld) [Mass ratio] 16 9 - 20 [facility] Laboratory - Chemistry and C hemistry - challengeon 07-13-2022 GFR/1.73 sq M.predicted MDRD (S/P/Bld) [Vol rate/Area] [facility] Comment on above: Average GFR for 20-2 9 years old: 116 mL/min/1.73sq m Chronic Kidney Disease: <60 mL/min/1.73sq m Kidney failure: <15 mL/min/1.73sq m eGFR calculated using average adult body mass. Additional eGFR calculator available at: http://www.[employer].RENTISH/multiple_crcl_2012.htm Stage 1: Some kidney damage normal GFR Stage 2: Mild kidney damage GFR 60-89 Stage 3: Moderate kidney damage GFR 30-59 Stage 4: Severe kidney damage GFR 15-29 Stage 5: Severe kidney damage GFR <15 ESRD - chronic treatment by dialysis or transplant T3, FreeOrdered By: Rick fowler on 05-18-2021 Free T3 [Mass/Vol] 2.99 pg/mL 2.02 - 4. 43 pg/mL 911 View Phone: [employer] Work Phone: [id number] By: Rick Purvis on 05-18-2021 T4 [Mass/Vol] 6.2 ug/dL 4.5 - 10.9 ug/dL 911 View Phone: 911 View Phone: CBC Auto DifferentialOrdered By: Rick Purvis on 05-17-2021 Absolute Eos # 0.13 [facility] Work Phone: Absolute Immature Granulocyte <0.03 [employer] Work Phone: Absolute Lymph # 1.[address] [facility] Work Phone: Absolute Winn # 0.39 [facility] [employer] Work Phone: Basophils (Bld) [#/Vol] 0.04 10*3/uL [employer] Work Phone: Basophils/100 WBC (Bld) 1 % 0 - 2 % [facility] Phone: Differential Type NOT REPORTED 911 View Phone: Eosinophils/100 WBC (Bld) 3 % 1 - 4 % [facility] Phone: Hematocrit (Bld) [Volume fraction] 39.9 % 36.3 - 47.1 % 911 View Phone: Hemoglobin.gastrointesti nal spec 1 Ql (Stl) 12.9 g/dL 11.9 - 15.1 g/dL 911 View Phone: Immature granulocytes/100 WBC (Bld) 0 % 0 [employer] Work Phone: Interpretation and review of laboratory results Abnormal 911 View Phone: Lymphocytes/100 WBC (Bld) 41 % 25 - 45 % 911 View Phone: MCH (RBC) [Entitic mass] 29.5 pg 25. 2 - 33.5 pg 911 View Phone: MCHC (RBC) [Mass/Vol] 32.3 g/dL 28.4 - 34.8 g/dL 911 View Phone: MCV (RBC) [Entitic vol] 91.1 fL 82.6 - 102.9 fL 911 View Phone: Monocytes/100 WBC (Bld) 9 % High 2 - 8 % M [employer] Phone: NRBC Automated 0.0 0.0 per 100 WBC 911 View Phone: Platelet distribution width (Bld) [Ratio] 12.9 % 11.8 - 14.4 % 911 View Phone: Platelet Estimate NOT REPORTED 911 View Phone: Platelet mean volume (Bld) [Entitic vol] 10.1 fL 8.1 - 13.5 fL 911 View Phone: Platelets (Bld) [#/Vol] 244 10*3/uL 911 View Phone: RBC (Bld) [#/Vol] 4.38 10*6/uL 3.95 - 5.1 1 m/uL 911 View Phone: RBC (Bld) [#/Vol] NOT REPORTED 911 View Phone: Segmented neutrophils/100 WBC (Bld) 46 % 34 - 64 % 911 View Phone: Segs Absolute 2.15 [employer] Work Phone: WBC (Bld) [#/Vol] 4.6 10*3/uL 911 View Phone: WBC (Bld) [#/Vol] NOT REPORTED 911 View Phone: 911 View Phone: Comprehensive Metabolic Pane lOrdered By: Rick Purvis on 05-17-2021 Albumin [Mass/Vol] 4.1 g/dL 3.5 - 5.2 g/dL 911 View Phone: Albumin/Globulin [Mass ratio] 1.4 {ratio} 911 View Phone: ALP (Bld) [Catalytic activity/Vol] 62 U/L 35 - 104 U/L 911 View Phone: ALT [Catalytic activity/Vol] 11 U/L 5 - 33 U/L 911 View Phone: Anion gap [Moles/Vol] 9 mmol/L 9 - 17 mmol/L 911 View Phone: AST [Catalytic activity/Vol] 13 U/L <32 911 View Phone: Bilirubin [Mass/Vol] 1.08 mg/dL 0.3 - 1 .2 mg/dL 911 View Phone: Calcium [Mass/Vol] 10.0 mg/dL 8.6 - 10. 4 mg/dL 911 View Phone: Chloride [Moles/Vol] 106 mmol/L 98 - 10 7 mmol/L 911 View Phone: CO2 [Moles/Vol] 26 mmol/L 20 - 31 mmol/L 911 View Phone: Creatinine [Mass/Vol] 0.73 mg/dL 0.50 - 0.90 mg/dL 911 View Phone: Free PSA/Total PSA [Mass fraction] 7.1 g/dL 6.4 - 8.3 g/dL 911 View Phone: GFR >60 >60 mL/min [employer] Phone: GFR Non- >60 >60 mL/min 911 View Phone: Glucose [Mass/Vol] 80 mg/dL 70 - 99 mg/dL [facility] [employer] Phone: Potassium [Moles/Vol] 3.9 mmol/L 3.7 - 5.3 mmol/L [facility] Phone: Sodium [Moles/Vol] 141 mmol/L 135 - 144 mmol/L [facility] Phone: Urea nitrogen (BldV) [Mass/Vol] 13 mg/dL 6 - 20 mg/dL [facility] Phone: Urea nitrogen/Creatinine (Bld) [Mass ratio] 18 911 View Phone: Laboratory - Chemistry and C hemistry - challengeOrdered By: Rick Purvis on 05-17-2021 GFR/1.73 sq M.predicted MDRD (S/P/Bld) [Vol rate/Area] [facility] Phone: Comment on above: Average GFR for 20-2 9 years old: 116 mL/min/1.73sq m Chronic Kidney Disease: <60 mL/min/1.73sq m Kidney failure: <15 mL/min/1.73sq m eGFR calculated using average adult body mass. Additional eGFR calculator available at: http://www.[employer].RENTISH/multiple_crcl_2012.htm Stage 1: Some kidney damage normal GFR Stage 2: Mild kidney damage GFR 60-89 Stage 3: Moderate kidney damage GFR 30-59 Stage 4: Severe kidney damage GFR 15-29 Stage 5: Severe kidney damage GFR <15 ESRD - chronic treatment by dialysis or transplant No Panel InformationOrdered By: Rick Purvis on 05-17-2021 911 View Phone: TSH without ReflexOrdered By : Rick Purvis on 05-17-2021 TSH Qn 1.69 m[IU]/L 911 View Phone: US PELVIS COMPLETEOrdered By : Florencia Arboleda on 05-05-2021 Negative transabdominal pelvic ultrasound. 911 View Phone: EXAMINATION: PELVIC ULTRASOUND 05/05/2021 TECHNIQUE: Transabdominal pelvic ultrasound was performed. COMPARISON: None HISTORY: ORDERING SYSTEM PROVIDED HISTORY: Right lower quadrant abdominal pain FINDINGS: Measurements: Uterus: 6.6 x 2.7 x 3.7 cm Endometrial stripe: 1.1 cm Right Ovary: 3.0 x 2.2 x 2.8 cm Left Ovary: 2.7 x 1.2 x 2.2 cm Ultrasound Findings: Uterus: Uterus demonstrates normal myometrial echotexture. Endometrial stripe: Endometrial stripe is within normal limits. Right Ovary: Right ovary is within normal limits with 1.4 cm dominant follicle. Left Ovary: Left ovary is within normal limits. Free Fluid: No evidence of free fluid. 911 View Phone: Tae, [facility] Incoming Radiant Results From [email or web address] - 05/05/2021 10:56 AM EDT EXAMINATION: PELVIC ULTRASOUND 05/05/2021 TECHNIQUE: Transabdominal pelvic ultrasound was performed. COMPARISON: None HISTORY: ORDERING SYSTEM PROVIDED HISTORY: Right lower quadrant abdominal pain FINDINGS: Measurements: Uterus: 6.6 x 2.7 x 3.7 cm Endometrial stripe: 1.1 cm Right Ovary: 3.0 x 2.2 x 2.8 cm Left Ovary: 2.7 x 1.2 x 2.2 cm Ultrasound Findings: Uterus: Uterus demonstrates normal myometrial echotexture. Endometrial stripe: Endometrial stripe is within normal limits. Right Ovary: Right ovary is within normal limits with 1.4 cm dominant follicle. Left Ovary: Left ovary is within normal limits. Free Fluid: No evidence of free fluid. IMPRESSION: Negative transabdominal pelvic ultrasound. 911 View Phone: 911 View Phone: Encounters Encounter Date Encounter Type Care Provider Facility Start: 04-27-2025 Encounter for genera l adult medical examination without abnormal findings [facility] Start: 03-12-2025 End: 03-12-[address] Che Aguilar MD Work Phone: [facility] Work Phone: Start: 03-12-2025 End: 03-12-[address] Che Aguilar MD -Laboratory, Barron Flores [facility] Start: 03-12-2025 End: 03-12-2025 ambulatory Che Aguilar Facility:[facility] Start: 04-27-2023 End: 04-28-2023 ambulatory RICK PURVIS [facility] Start: 04-27-2023 End: 04-27-2023 Subsequent hospital visit by physician Rick Purvis DO Work Phone: [facility] Start: 04-13-2023 End: 04-13-2023 ambulatory VEDA GILL [facility] Start: 10-02-2022 End: 10-05-2022 ambulatory RICK PURVIS [facility] Start: 10-02-2022 End: 10-04-2022 Subsequent hospital visit by physician [facility] Cat Scan Room [facility] CT Scan Comment on above: Nonintractable heada juli, unspecified chronicity pattern, unspecified headache type Start: 07-13-2022 End: 07-14-2022 [facility] Start: 07-13-2022 End: 07-14-2022 Encounter for general adult medical examination without abnormal findings [facility] Start: 07-13-2022 End: 07-13-2022 Subsequent hospital visit by physician Rick Purvis DO Work Phone: [facility] Start: 05-17-2021 End: 05-17-2021 Subsequent hospital visit by physician Rick Purvis DO Work Phone: [facility] Start: 05-05-2021 End: 05-07-2021 Subsequent hospital visit by physician [facility] Ultrasound Room 2 [facility] Ultrasound Comment on above: Right lower quadrant abdominal pain Start: 12-08-2020 End: 12-08-2020 [facility] Cov[facility] Comment on above: Arrived Start: 11-09-2020 End: 11-09-2020 [facility] Covid Screening Comment on above: Arrived Procedures Date Procedure Procedure Detail Performing Clinician Start: 04-27-2023 Comprehensive metabo lic panel Rick Purvis DO Work Phone: Start: 10-02-2022 Ct head/brain w/o co ntrast material Rick Purvis DO Work Phone: Start: 07-13-2022 Comprehensive metabo lic panel Rick Purvis DO Work Phone: Start: 05-17-2021 Comprehensive metabo lic panel Rick Purvis DO Work Phone: Start: 05-05-2021 Us pelvic nonobstetr ic real-time image complete Florenciadalia Arboleda SCANNER OPERATOR - CNM Work Phone: Plan of Treatment Date Care Activity Detail Author Start: 04-10-2024 Depression Screen Depression Screen [facility] Start: 06-26-2023 Influenza vaccination Flu vacc ine (Season Ended) [facility] Start: 06-13-2023 Depression Monitoring Depression Mon itoring [facility] Start: 11-29-2022 End: 11-29-2022 Patient encounter procedure 11/29/2022 Office Visit Obstetrics and Gynecology Anjelica Vale PA-C [address] [place] [address] [facility] of [facility] Start: 11-17-2022 End: 11-17-2022 Admission to same day surgery center 11/17/2022 Surgery IP Unit Veda Corado DO [address] [place] [address] LAPAROSCOPY EXPLORATORY-DIAGNOSTIC, LYSIS OF ADHESIONS, ABLATION OF ENDOMETRIOSIS [facility] OR Comment on above: LAPAROSCOPY EXPLORAT ORY-DIAGNOSTIC, LYSIS OF ADHESIONS, ABLATION OF ENDOMETRIOSIS Start: 11-17-2022 End: 12-23-2022 Laps fulg/exc ovary viscera/peritoneal surface LAPAROSCOPY EXPLORATORY Pelvic pain 11/17/2022 9:01 [facility] Start: 11-17-2022 Subsequent hospital visit by physician 11/17/2022 Hospital Encounter IP Unit Veda Corado, DO [address] [place] [address] [facility] Start: 11-17-2022 End: 11-17-2022 Admission to same day surgery center 11/17/2022 Surgery IP Unit Veda Corado, DO [address] [place] [address] LAPAROSCOPY EXPLORATORY-DIAGNOSTIC, LYSIS OF ADHESIONS, ABLATION OF ENDOMETRIOSIS [facility] OR Comment on above: LAPAROSCOPY EXPLORAT ORY-DIAGNOSTIC, LYSIS OF ADHESIONS, ABLATION OF ENDOMETRIOSIS Start: 11-17-2022 End: 11-17-2022 Laps fulg/exc ovary viscera/peritoneal surface LAPAROSCOPY EXPLORATORY Pelvic pain 11/17/2022 7:30 AM [facility] Start: 11-17-2022 Subsequent hospital visit by physician 11/17/2022 Hospital Encounter IP Unit Veda Corado, DO [address] [place] [address] [facility] Start: 11-14-2022 End: 11-14-2022 Patient encounter procedure 11/14/2022 Office Visit Obstetrics and Gynecology Veda Corado, DO [address] [place] [address] [facility] Start: 07-27-2022 Influenza vaccination Flu vaccine (# 1) [facility] Start: 06-26-2022 Influenza vaccination Flu vaccine (# 1) [facility] Start: 01-10-2022 COVID-19 Vaccine (2 - Pfizer series) COVID-19 Vaccine (2 - Pfizer series) [facility] Start: 2021 Screening for malign ant neoplasm of cervix Pap smear [facility] Start: 07-27-2021 Influenza vaccination Flu vacc ine (Season Ended) [facility] Work Phone: Start: 05-10-2021 End: 05-10-2021 Patient encounter procedure 05/10/2021 Office Visit Obstetrics and Gynecology Florencia Arboleda, SCANNER OPERATOR - CNM [address] [place] [address] [facility] Start: 07-27-2020 Influenza vaccination Flu vaccine (# 1) [place] Start: 2019 DTaP/Tdap/Td vaccine (1 - Tdap) DTaP/Tdap/Td vaccine (1 - Tdap) [place] Start: 2018 Hepatitis C screening Hepatitis C sc reen [facility] Start: 2016 Screening for Chlamy sommer trachomatis [facility] Start: 2015 HIV screening HIV screen [facility] Start: 2012 COVID-19 Vaccine (1) COVID-19 Vaccin e (1) [facility] [employer] Phone: Start: 2011 DTaP/Tdap/Td vaccine (6 - Tdap) DTaP/Tdap/Td vaccine (6 - Tdap) [facility] Start: 2011 HPV vaccine (1 - 2-d ose series) HPV vaccine (1 - 2-dose series) [facility] Start: 09-20-2006 Varicella vaccine (2 of 2 - 2-dose childhood series) Varicella vaccine (2 of 2 - 2-dose childhood series) [facility] Start: 2001 Varicella vaccine (1 of 2 - 2-dose childhood series) Varicella vaccine (1 of 2 - 2-dose childhood series) [place], [place] Start: 2000 Hepatitis C screening Hepatitis C sc reen [place], [place] End: 12-08-2020 COVID-19 COVID-19 Lab Routine Once for 1 Occurrences starting 12/08/2020 until 12/08/2020 [place] Comment on above: Once for 1 Occurrenc es starting 12/08/2020 until 12/08/2020 COVID-19 COVID-19 Lab Rou darvin 12/08/2020 9:12 AM [place] End: 11-09-2020 Covid-19 Ambulatory Covid-19 Ambulatory Lab Routine Once for 1 Occurrences starting 11/09/2020 until 11/09/2020 [place] Comment on above: Once for 1 Occurrenc es starting 11/09/2020 until 11/09/2020 Covid-19 Ambulatory Covid-19 Amb ulatory Lab Routine 11/09/2020 11:41 AM [place] End: 05-17-2021 T3 T3 Lab Routine Once for 1 Occurrences starting 05/17/2021 until 05/17/2021 [address] [facility] [employer]: Comment on above: Once for 1 Occurrenc es starting 05/17/2021 until 05/17/2021 T3 T3 Lab Routine 05/17/2021 1:00 PM EDT 911 View Phone: Payers Date Payer Category Payer Private Health Insurance [id number] 2025 Self-pay 2021 Unknown [id number] 2020 Unknown [id number] 2000 Unknown [id number] 2000 Unknown [id number] 2000 Unknown [id number] 2000 Unknown [id number] Private Health Insurance [employer] [id number] Unknown [id number] Social History Date Type Detail Facility Start: 02-10-2016 End: 08-24-2020 Tobacco smoking status NHIS Never smoker [facility] Start: 2000 Sex Assigned At Not on file [place] Start: 04-14-2021 Tobacco use and exposure Never used [facility] Start: 04-14-2021 End: 06-13-2022 Alcohol intake Lifetime non-drinker (finding) [employer] Phone: Start: 04-25-2023 Alcohol intake Current drinke r of alcohol (finding) [facility] Phone: Start: 04-10-2023 History SDOH Financial 5 [employer] Phone: Start: 04-10-2023 History SDOH Food Worry 1 [facility] Phone: Start: 04-10-2023 History SDOH Transpo rt Non-Med 2 [employer] Phone: Start: 03-30-2023 Alcohol Comment social [facility] Phone: Start: 08-24-[address] [facility] Start: 08-24-2020 - - [facility] Start: 08-24-2020 Non-smoker Non-smoker [facility] Start: 03-16-2025 Sex Female (finding) [facility] Start: 2000 Sex Assigned At Female [facility] Evaluation note Note Date & Type Note Facility Evaluation note Diagnosis Right lower quadrant abdominal pain Abdominal pain, right lower quadrant documented in this encounter [employer] Phone: Evaluation note Note Date & Type Note Facility Evaluation note Diagnosis Nonintractable headache, unspecified chronicity pattern, unspecified headache type Pelvic pain documented in this encounter [employer] [facility] Work Phone: Evaluation note Note Date & Type Note Facility Evaluation note No assessment information availa keenan [facility] Work Phone: Reason for referral (narrative) Note Date & Type Note Facility Reason for referral (narrative) No reason for referral information available [facility] Work Phone: Advance Directives No Advanced Directives Records FoundDocuments on File Type Date Recorded Patient Quality Analyst Expl anation ACP-Advance Directive ACP-Power of Can Stacker Documents on File Type Date Recorded Patient Quality Analyst Expl anation ACP-Advance Directive ACP-Power of [employer] Stacker Latest Code Status on File Code Status Date Activated Date Inactivated Comments Full Code 04/13/2023 9:44 AM 04/13/2023 3:44 PM Reason for Referral Status Reason Specialty Diagnoses / Procedures Referre d By Contact Referred To Contact Closed Radiology Diagnoses Right lower quadrant abdominal pain Procedures US PELVIS COMPLETE Florencia Arboleda APRN - CNM [address] [place] [address] Specialty Diagnoses / Procedures Referred By Contac t Referred To Contact Radiology Diagnoses Nonintractable headache, unspecified chronicity pattern, unspecified headache type Procedures CT HEAD WO CONTRAST Rick Purvis, DO [address] [place] [phone] Referral ID Status Reason Start Date Expiration Date Visits Re quested Visits Authorized [id number] Closed 10/02/2022 10/02/2023 1 1 Summary Purpose Family History No Family History Records FoundNo Family History Records Found Additional Source Comments Reason for Visit (unrecogniz ed section and content) Status Reason Specialty Diagnoses / Procedures Referre d By Contact Referred To Contact Closed Radiology Diagnoses Right lower quadrant abdominal pain Procedures US PELVIS COMPLETE Florencia Arboleda APRN - CNM [address] [place] [address] Specialty Diagnoses / Procedures Referred By Contac t Referred To Contact Radiology Diagnoses Nonintractable headache, unspecified chronicity pattern, unspecified headache type Procedures CT HEAD WO CONTRAST Rick Purvis, DO [address] [place] [phone] Referral ID Status Reason Start Date Expiration Date Visits Re quested Visits Authorized [id number] Closed 10/02/2022 10/02/2023 1 1 Care Teams (unrecognized sec tion and content) Prop Attendant Relationship Specialty Start Date End Date Rick Purvis, [address] [phone] PCP - General 02/10/16 Prop Attendant Relationship Specialty Start Date End Date Rick Purvis, [address] [phone] PCP - General 02/10/16 Prop Attendant Relationship Specialty Start Date End Date Rick Purvis, [address] [phone] PCP - General 02/10/16 Team Status: Active Member Role Status Dates Dr. Che Aguilar MD Primary Care Provider Active Team Status: Inactive Member Role Status Dates Dr. Che Aguilar MD Primary Care Provider Active Start: March 12, 2025 End: March 12, 2025 Dr. Che Aguilar MD Attending Provider Active Start: March 12, 2025 End: March 12, 2025 INFORMATION SOURCE (unrecogn ized section and content) DATE CREATED AUTHOR 05/05/2023 Jo weems DATE CREATED AUTHOR AUTHOR'S ORGANIZ ATION 04/28/2025 [place] Goals (unrecognized section and content) Goals may be documented in a n alternate section FOR RECORDS PERTAINING TO PATIENTS WHO ARE OR HAVE BEEN ENROLLED IN A CHEMICAL DEPENDENCY/SUBSTANCEABUSE PROGRAM, SOME INFORMATION MAY BE OMITTED. This clinical summary was aggregated from multiple sources. Caution should be exercised in using it in the provision of clinical care. This summary normalizes information from multiple sources, and as a consequence, information in this document may materially change the coding, format and clinical context of patient data. In addition, data may be omitted in some cases. CLINICAL DECISIONS SHOULD BE BASED ON THE PRIMARY CLINICAL RECORDS. [facility] provides no warranty or guarantee of the accuracy or completeness of information in this document.
[2025-07-01 13:08] LABS: ANTINUCLEAR ANTIBODIES DIRECT Negative (Negative)
== END | disposition home or self-care (01) ==
LOC: BFHLAB 14:54
PROVIDERS: PCP Family Medicine; Visit Provider Family Medicine
DX: Z00.00 Encounter for general adult medical examination without abnormal findings (principal); M79.10 Myalgia, unspecified site; R53.83 Other fatigue
CPT/HCPCS: 36415; 80053; 84443; 85025; 85652; 86038; 86140

== ENCOUNTER 2025-11-22 20:32 | Emergency (ER) | payer OTHER, SELFPAY ==
[2025-11-22 20:33] VITALS: BP 185/91; PULSE 86; RESP 14; TEMP 36.8; O2SAT 98; BMI 50.3
--- NOTE | 2025-11-22 20:37 | EX.ED.DYSGE1 ---
HPI History of Present Illness Chief Complaint: Allergic Reaction Informant: patient Onset/Context/Timing Onset: Today Context: Sudden Onset Timing: Continuous Quality: Stabbing, swelling Location: Right side of throat Worsened by: Nothing Relieved by: Nothing Narrative Narrative: Patient presents with possible allergic reaction that occurred approximately 40 minutes prior to arrival. Patient states she was driving and felt like her throat was swelling. Patient states it is mainly over the right side of her throat. Patient states she noticed hives on her legs yesterday but states these have resolved. Patient states she started having some itching on her legs again today when she noticed her throat swelling. Patient states she did not look at her legs to see if she was starting to have hives again. Patient denies any new soaps, laundry detergents, fabric softeners, shampoos, deodorants, or perfumes. Patient states she was recently started on a new control medication. Patient states she feels like she has stabbing and swelling in her throat. Patient states it is on the right side of her throat. Patient states nothing makes it worse and nothing makes it better. [facility] Medical History Adenomyosis Depression Anxiety Home Medications ?Medication ?Instructions ?Recorded ?Last Taken ?Type cetirizine 10 mg tablet (24Hour 10 mg PO DAILY PRN allergy symptoms 11/22/25 Unknown History Allergy) citalopram 40 mg tablet (Celexa) 40 mg PO DAILY 11/22/25 Unknown History gabapentin 100 mg capsule 200 mg PO DAILY 11/22/25 Unknown History multivitamin (Daily Value tablet) 1 tab PO DAILY 11/22/25 Unknown History norethindrone 1 mg-ethinyl 1 tab PO DAILY 11/22/25 Unknown History estradiol 20 mcg (24)-iron 75 mg (4) tablet (Blisovi 24 Fe) prednisone 20 mg tablet 60 mg (3 x 20 mg) PO DAILY #12 11/22/25 Unknown Rx TABLETS Allergy/AdvReac Type Severity Reaction Status Date / Time No Known Allergies Allergy Verified 11/22/25 20:33 Social History Smoking Status: Never smoker ROS ROS ED Constitutional Constitutional ED: Denies chills or fever(s) Eyes Eyes: Denies blurry vision or change in vision ENT ENT ED: Reports rhinorrhea and sore throat Cardiovascular Cardiovascular: Denies chest pain or palpitations Respiratory/Chest Respiratory/Chest: Reports cough; Denies dyspnea Gastrointestinal Gastrointestinal: Denies nausea or vomiting Genitourinary Genitourinary ED: Denies dysuria or hematuria Musculoskeletal Musculoskeletal: Reports neck pain; Denies back pain Integumentary Reports rash; Denies abscess Neurologic Neurologic: Denies headache(s) or weakness Allergic/Immunologic Allergic/Immunologic ED: Reports urticaria; Denies mouth swelling EXAM Physical Exam Const Vital Signs: 11/22/25 20:33 Temperature 98.3 F Temperature Source Oral Pulse Rate 86 Respiratory Rate 14 Blood Pressure 185/91 H Blood Pressure Mean 122 Pulse Ox 98 Oxygen Delivery Method Room Air Positive well nourished and well developed Constitutional Narrative: BMI is 50.4. General Appearance ED: well developed and NAD HEENT Reports moist mucous membranes HEENT Narrative: Oropharynx is clear. Airway is patent. There is no pharyngeal edema noted. There are no exudates noted. Neck supple and no JVD Resp normal respiratory effort and clear to auscultation bilaterally Cardio regular rate and regular rhythm GI non-tender and non-distended Palpation: soft Neuro oriented x3, CN's II-XII intact bilaterally and no sensory deficits noted Sensorium / Orientation: alert Motor Exam: strength 5/5 throughout Psych mental status grossly normal Skin Skin Narrative: There is some mild patchy erythema of the lower legs bilaterally. There are no vesicles or pustules noted. There are no petechia noted. There is no sloughing of the skin. There is no involvement of the palms or soles. There is no involvement of the mucous membranes. MDM MDM MDM Narrative Medical decision making narrative: Patient was advised that this could be an allergic reaction to her new oral contraceptive medication. Patient was given a dose of Benadryl here. Patient was given a dose of prednisone. Patient was also given a dose of Pepcid. Patient was observed in the emergency department. Treatment and Re-Evaluation :: Patient is feeling somewhat better on reevaluation. Patient was advised of her findings. Patient was advised that this could be related to her control medication. Patient was given prescription for prednisone. Patient was instructed to take Benadryl as needed for any itching. Patient was instructed to follow-up with her primary care physician in 5 to 7 days. Patient instructed to contact her [employer] OFF[employer] ADMINISTRATOR to see if they want to change her oral contraceptive medication. Patient understood and was agreeable with plan. All questions were answered. Discharge Plan Triage Chief Complaint: Allergic Reaction Other Complaint: Rash ED Provider: Vijay Vasquez Dx/Rx/DC Orders Clinical Impression: Urticaria, Elevated blood pressure reading Instructions: ED Hives (Adult) Prescriptions: New prednisone 20 mg tablet 60 mg PO DAILY Qty: 12 0RF No Action cetirizine [24Hour Allergy] 10 mg tablet 10 mg PO DAILY PRN (Reason: allergy symptoms) Blisovi 24 Fe 1 mg-20 mcg (24)/75 mg (4) tablet 1 tab PO DAILY gabapentin 100 mg capsule 200 mg PO DAILY citalopram [Celexa] 40 mg tablet 40 mg PO DAILY multivitamin [Daily Value] Tablet 1 tab PO DAILY Primary Care Provider: Che Aguilar Referrals: Che Aguilar MD [Primary Care Provider, Family Practice] - 5-7 Days Print Language: Djiboutian Disposition Disposition: Home, Self Care
[2025-11-22] MEDS: 0.9% Normal Saline (1000mL) 1,000 ML 999 ML IV (20:59)
[2025-11-22] MEDS: Famotidine 200 MG/20 ML MDV 20 MG in 0.9% Normal Saline (Pres. free 8 ML 300 MG IV (21:08)
--- OUTSIDE RECORDS SUMMARY | 2025-11-22 21:13 | XMS RPT_ITS | CCD ---
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 Che Aguilar MD Primary Care Provider Dr. Che Aguilar MD Attending Provider Che Aguilar Primary Care Unavailable Che Aguilar Attending Unavailable Che Aguilar Attending Unavailable Che Aguilar Primary Care Unavailable Allergies Allergy Classification Reported Allergen(s) Allergy Type Date of Onset Reaction(s) Facility (1 source) Ethinyl Estradiol / norelgestromin Drug Allergy 11-10-2022 Headaches [facility] Medications Current Medications Medication Drug Class(es) [...] Translations: [Headache, unspecified] Onset: 10-02-2022 Intracranial injury (2 sources) Concussion injury of body structure; Translations: [Concussion] 08-25-2020 Episodic Other nervous system disorders (1 source) Other acute postprocedural pain; Translations: [Other acute postprocedural pain] Onset: 04-13-2023 Episodic Results Test Name Value Interpretation Reference Range Facility ANTINUCLEAR ANTIBODIES DIREC Ton 07-01-2025 EVERARDO,DIRECT Negative Normal Negative [facility] Comment on above: Result Comment: Perf ormed at: - [facility] [address] [id number] [place], [place] [id number] Closing Agent: Jarod Devlin PhD, Phone: [phone] Performed By: #### L 500.4050, L101.9900, L3100.5475, L501.6710, L501.9520, L100.0100 #### [facility] [address] [place], [address] Absolute lymphocyte countOrd ered By: Che Aguilar on 06-29-2025 Lymphocytes Auto (Unsp spec) [#/Vol] 2.19 10*3/uL 0.83-4.51 [facility] Absolute neutrophil countOrd ered By: Che Aguilar on 06-29-2025 Neutrophils (Bld) [#/Vol] 3.2 10*3/uL 2.0-7.7 [facility] Anion gap in Serum or Plasma Ordered By: Che Aguilar on 06-29-2025 Anion gap [Moles/Vol] 14 mmol/L 5-15 [facility] Automated lymphocyte count a s percentage of total leukocytesOrdered By: Che Aguilar on 06-29-2025 Lymphocytes/100 WBC Auto (Unsp spec) 36.7 % - [facility] BUN/creatinine ratioOrdered By: Che Aguilar on 06-29-2025 Urea nitrogen/Creatinine [Mass ratio] 18.6 mg/mg 10-20 [facility] Basophil percentageOrdered B y: Che Aguilar on 06-29-2025 Basophils/100 WBC (Bld) 0.5 % 0-1 [facility] Bilirubin, totalOrdered By: Che Aguilar on 06-29-2025 Bilirubin [Mass/Vol] 0.70 mg/dL 0.00-1.30 [facility] CBC W/Diff, Automatedon Absolute Lymph 2.19 X10 3/uL Normal 0.83-4.51 [facility] Comment on above: Performed By: #### L 500.4050, L101.9900, L3100.5475, L501.6710, L501.9520, L100.0100 #### [facility] [address] [place], [address] Absolute Neut 3.2 X10 3/uL Normal 2.0-7.7 [facility] Comment on above: Performed By: #### L 500.4050, L101.9900, L3100.5475, L501.6710, L501.9520, L100.0100 #### [facility] [address] [place], [address] Basophils/100 WBC (Bld) 0.5 % Normal 0-1 [facility] Comment on above: Performed By: #### L 500.4050, L101.9900, L3100.5475, L501.6710, L501.9520, L100.0100 #### [facility] [address] [place], [address] Eosinophils/100 WBC (Bld) 1.8 % Normal 0-5 [facility] Comment on above: Performed By: #### L 500.4050, L101.9900, L3100.5475, L501.6710, L501.9520, L100.0100 #### [facility] [address] [place], [address] Erythrocyte distribution width (RBC) [Ratio] 13.5 % Normal 11.6-14.6 [facility] Comment on above: Performed By: #### L 500.4050, L101.9900, L3100.5475, L501.6710, L501.9520, L100.0100 #### [facility] [address] [place], [address] Hematocrit (Bld) [Volume fraction] 38.3 % Normal 37-47 [facility] Comment on above: Performed By: #### L 500.4050, L101.9900, L3100.5475, L501.6710, L501.9520, L100.0100 #### [facility] [address] [place], [address] Hemoglobin (Bld) [Mass/Vol] 12.8 g/dL Normal 12.0-15.0 [facility] Comment on above: Performed By: #### L 500.4050, L101.9900, L3100.5475, L501.6710, L501.9520, L100.0100 #### [facility] [address] [facility] [place] [place], [address] IG% 0.300 Normal 0.0-0.9 [facility] Comment on above: Result Comment: IG% - Immature Granulocytes (promyelocytes, myelocytes and metamyelocytes) > 1% indicates that a LEFT SHIFT is Present. Performed By: #### L 500.4050, L101.9900, L3100.5475, L501.6710, L501.9520, L100.0100 #### [facility] [address] [place], [address] Lymphocytes/100 WBC (Bld) 36.7 % Normal 19-41 [facility] Comment on above: Performed By: #### L 500.4050, L101.9900, L3100.5475, L501.6710, L501.9520, L100.0100 #### [facility] [address] [place], [address] MCH (RBC) [Entitic mass] 28.0 pg Normal 27.0-32.0 [facility] Comment on above: Performed By: #### L 500.4050, L101.9900, L3100.5475, L501.6710, L501.9520, L100.0100 #### [facility] [address] [place], [address] MCHC (RBC) [Mass/Vol] 33.4 g/dL Normal 32-36 [facility] Comment on above: Performed By: #### L 500.4050, L101.9900, L3100.5475, L501.6710, L501.9520, L100.0100 #### [facility] [address] [place], [address] MCV (RBC) [Entitic vol] 83.8 fL Normal 81-99 [facility] Comment on above: Performed By: #### L 500.4050, L101.9900, L3100.5475, L501.6710, L501.9520, L100.0100 #### [facility] [address] [place], [address] Monocytes/100 WBC (Bld) 6.7 % Normal 0-10 [facility] Comment on above: Performed By: #### L 500.4050, L101.9900, L3100.5475, L501.6710, L501.9520, L100.0100 #### [facility] [address] [place], [address] Neutrophils/100 WBC (Bld) 54.0 % Normal 47-70 [facility] Comment on above: Performed By: #### L 500.4050, L101.9900, L3100.5475, L501.6710, L501.9520, L100.0100 #### [facility] [address] [place], [address] Nucleated RBC (Bld) [#/Vol] 0 10*3/uL Normal 0-5 [facility] Comment on above: Performed By: #### L 500.4050, L101.9900, L3100.5475, L501.6710, L501.9520, L100.0100 #### [facility] [address] [place], [address] Platelet mean volume (Bld) [Entitic vol] 10.4 fL Normal 6.2-12.0 [facility] Comment on above: Performed By: #### L 500.4050, L101.9900, L3100.5475, L501.6710, L501.9520, L100.0100 #### [facility] [address] [place], [address] Platelets (Bld) [#/Vol] 292 10*3/uL Normal 150-450 [facility] Comment on above: Performed By: #### L 500.4050, L101.9900, L3100.5475, L501.6710, L501.9520, L100.0100 #### [facility] [address] [place], [address] RBC (Bld) [#/Vol] 4.57 10*6/uL Normal 4.2-5.4 [facility] Comment on above: Performed By: #### L 500.4050, L101.9900, L3100.5475, L501.6710, L501.9520, L100.0100 #### [facility] [address] [place], [address] RDW SD 41.1 fl Normal 35.1-43.9 [facility] Comment on above: Performed By: #### L 500.4050, L101.9900, L3100.5475, L501.6710, L501.9520, L100.0100 #### [facility] [address] [place], [address] WBC (Bld) [#/Vol] 6.0 10*3/uL Normal 4.4-11.0 [facility] Comment on above: Performed By: #### L 500.4050, L101.9900, L3100.5475, L501.6710, L501.9520, L100.0100 #### [facility] [address] [place], [address] CRPon 06-29-2025 C-REACTIVE PROT 9.31 mg/L High 0.0-3.0 [facility] Comment on above: Performed By: #### L 500.4050, L101.9900, L3100.5475, L501.6710, L501.9520, L100.0100 #### [facility] [address] [place], [address] Carbon dioxide, total [Moles /volume] in Central venous bloodOrdered By: Che Agiular on 06-29-2025 CO2 [Moles/Vol] 22.7 mmol/L 21.0-32.0 [facility] Chloride assayOrdered By: Ermias Aguilar on 06-29-2025 Chloride [Moles/Vol] 101 mmol/L 98-108 [facility] Comprehensive Metabolic Prof ilon 06-29-2025 Albumin [Mass/Vol] 4.3 g/dL Normal 3.5-5.0 [facility] Comment on above: Performed By: #### L 500.4050, L101.9900, L3100.5475, L501.6710, L501.9520, L100.0100 #### [facility] [address] [place], [address] Albumin/Globulin [Mass ratio] 1.7 {ratio} Normal 0.9-2.4 [facility] Comment on above: Performed By: #### L 500.4050, L101.9900, L3100.5475, L501.6710, L501.9520, L100.0100 #### [facility] [address] [place], [address] ALK PHOS 72 U/L Normal 35-104 [facility] Comment on above: Performed By: #### L 500.4050, L101.9900, L3100.5475, L501.6710, L501.9520, L100.0100 #### [facility] [address] [place], [address] ALT [Catalytic activity/Vol] 41 U/L High <=34 [facility] Comment on above: Performed By: #### L 500.4050, L101.9900, L3100.5475, L501.6710, L501.9520, L100.0100 #### [facility] [address] [place], [address] AST [Catalytic activity/Vol] 27 U/L Normal <=31 [facility] Comment on above: Performed By: #### L 500.4050, L101.9900, L3100.5475, L501.6710, L501.9520, L100.0100 #### [facility] [address] [place], [address] Bilirubin [Mass/Vol] 0.70 mg/dL Normal 0.00-1.30 [facility] Comment on above: Performed By: #### L 500.4050, L101.9900, L3100.5475, L501.6710, L501.9520, L100.0100 #### [facility] [address] [place], [address] BUN/CRE 18.6 RATIO Normal 10-20 [facility] Comment on above: Performed By: #### L 500.4050, L101.9900, L3100.5475, L501.6710, L501.9520, L100.0100 #### [facility] [address] [place], [address] Calcium [Mass/Vol] 9.7 mg/dL Normal 7.6-11.0 [facility] Comment on above: Performed By: #### L 500.4050, L101.9900, L3100.5475, L501.6710, L501.9520, L100.0100 #### [facility] [address] [place], [address] Chloride [Moles/Vol] 101 mmol/L Normal 98-108 [facility] Comment on above: Performed By: #### L 500.4050, L101.9900, L3100.5475, L501.6710, L501.9520, L100.0100 #### [facility] [address] [place], [address] CO2 [Moles/Vol] 22.7 mmol/L Normal 21.0-32.0 [facility] Comment on above: Performed By: #### L 500.4050, L101.9900, L3100.5475, L501.6710, L501.9520, L100.0100 #### [facility] [address] [place], [address] Creatinine [Mass/Vol] 0.77 mg/dL Normal 0.70-1.20 [facility] Comment on above: Performed By: #### L 500.4050, L101.9900, L3100.5475, L501.6710, L501.9520, L100.0100 #### [facility] [address] [place], [address] GAP 14 Normal 5-15 [facility] Comment on above: Performed By: #### L 500.4050, L101.9900, L3100.5475, L501.6710, L501.9520, L100.0100 #### [facility] [address] [place], [address] GFR/1.73 sq M.predicted among non-blacks MDRD (S/P/Bld) [Vol rate/Area] 110 mL/min/{1.73_m2} Normal >60 [facility] Comment on above: Result Comment: mL/m in/1.73m2 CKD-EPI Creatinine Equation (2020) Performed By: #### L 500.4050, L101.9900, L3100.5475, L501.6710, L501.9520, L100.0100 #### [facility] [address] [place], [address] Globulin (S) [Mass/Vol] 2.6 g/dL Normal 2.2-4.2 [facility] Comment on above: Performed By: #### L 500.4050, L101.9900, L3100.5475, L501.6710, L501.9520, L100.0100 #### [facility] [address] [place], [address] Glucose [Mass/Vol] 107 mg/dL High 70-99 [facility] Comment on above: Performed By: #### L 500.4050, L101.9900, L3100.5475, L501.6710, L501.9520, L100.0100 #### [facility] [address] [place], [address] Potassium [Moles/Vol] 3.8 mmol/L Normal 3.3-5.1 [facility] Comment on above: Performed By: #### L 500.4050, L101.9900, L3100.5475, L501.6710, L501.9520, L100.0100 #### [facility] [address] [place], [address] Sodium [Moles/Vol] 138 mmol/L Normal 133-145 [facility] Comment on above: Performed By: #### L 500.4050, L101.9900, L3100.5475, L501.6710, L501.9520, L100.0100 #### [facility] [address] [place], [address] T PROT 6.9 g/dL Normal 5.9-8.4 [facility] Comment on above: Performed By: #### L 500.4050, L101.9900, L3100.5475, L501.6710, L501.9520, L100.0100 #### [facility] [address] [place], [place], [address] Urea nitrogen [Mass/Vol] 14 mg/dL Normal 4-19 [facility] Comment on above: Performed By: #### L 500.4050, L101.9900, L3100.5475, L501.6710, L501.9520, L100.0100 #### [facility] [address] [place], [place], [id number] (648) Eosinophil percentageOrdered By: Che Aguilar on 06-29-2025 Eosinophils/100 WBC (Bld) 1.8 % 0-5 [facility] Erythrocyte Sed Rateon 06-29 SED RATE 13 mm/hr Normal 0-30 [facility] Comment on above: Performed By: #### L 500.4050, L101.9900, L3100.5475, L501.6710, L501.9520, L100.0100 #### [facility] [address] [place], [place], [address] Erythrocyte distribution wid th ratioOrdered By: Che Aguilar on 06-29-2025 Erythrocyte distribution width (RBC) [Ratio] 13.5 % 11.6-14.6 [facility] Erythrocyte distribution wid th standard deviationOrdered By: Che Aguilar on 06-29-2025 Erythrocyte distribution width (RBC) [Ratio] 41.1 fl 35.1-43.9 [facility] Erythrocyte sedimentation ra teOrdered By: Che Aguilar on 06-29-2025 ESR (Bld) [Velocity] 13 mm/h 0-30 [facility] Glomerular filtration rate ( GFR) estimation/1.73 sq m using serum, plasma, or whole bOrdered By: Che Aguilar on 06-29-2025 GFR/1.73 sq M.predicted among non-blacks MDRD (S/P/Bld) [Vol rate/Area] 110 mL/min/{1.73_m2} >60 [facility] Comment on above: mL/min/1.73m2 CKD-EP I Creatinine Equation (2020) Hematocrit Auto (Bld) [Volum e fraction]Ordered By: Che Aguilar on 06-29-2025 Hematocrit (Bld) [Volume fraction] 38.3 % 37-47 [facility] Hemoglobin measurementOrdere d By: Che Aguilar on 06-29-2025 Hemoglobin (Bld) [Mass/Vol] 12.8 g/dL 12.0-15.0 [facility] Immature granulocytes/100 WB C Auto (Bld)Ordered By: Che Aguilar on 06-29-2025 Immature granulocytes/100 WBC (Bld) 0.300 % 0.0-0.9 [facility] Comment on above: IG% - Immature Granu locytes (promyelocytes, myelocytes and metamyelocytes) > 1% indicates that a LEFT SHIFT is Present. Laboratory - Chemistry and C hemistry - challengeOrdered By: Che Aguilar on 06-29-2025 AST [Catalytic activity/Vol] 27 U/L <32 [facility] MCV (mean corpuscular volume ) determinationOrdered By: Che Aguilar on 06-29-2025 MCV (RBC) [Entitic vol] 83.8 fL 81-99 [facility] Mean corpuscular hemoglobin (MCH) determinationOrdered By: Che Aguilar on 06-29-2025 MCH (RBC) [Entitic mass] 28.0 pg 27.0-32.0 [facility] Mean corpuscular hemoglobin concentration (MCHC) determinationOrdered By: Che Aguilar on 06-29-2025 MCHC (RBC) [Mass/Vol] 33.4 g/dL 32-36 [facility] Mean platelet volume determi nationOrdered By: Che Aguilar on 06-29-2025 Platelet mean volume (Bld) [Entitic vol] 10.4 fL 6.2-12.0 [facility] Monocyte percentageOrdered B y: Che Aguilar on 06-29-2025 Monocytes/100 WBC (Bld) 6.7 % 0-10 [facility] Neutrophil percentageOrdered By: Che Aguilar on 06-29-2025 Neutrophils/100 WBC (Bld) 54.0 % 47-70 [facility] Nucleated red blood cell per centageOrdered By: Che Aguilar on 06-29-2025 Nucleated RBC/100 WBC (Bld) [Ratio] 0 % 0-5 [facility] Platelet countOrdered By: Ermias Aguilar on 06-29-2025 Platelets (Bld) [#/Vol] 292 10*3/uL 150-450 [facility] Potassium measurement (mass/ volume)Ordered By: Che Aguilar on 06-29-2025 Potassium (Unsp spec) [Mass/Vol] 3.8 mmol/L 3.3-5.1 [facility] RBC Auto (Bld) [#/Vol]Ordere d By: Che Aguilar on 06-29-2025 RBC (Bld) [#/Vol] 4.57 10*6/uL 4.2-5.4 [facility] Serum creatinine measurement (mass/volume)Ordered By: Che Aguilar on 06-29-2025 Creatinine [Mass/Vol] 0.77 mg/dL 0.70-1.20 [facility] Serum globulin measurementOr dered By: Che Aguilar on 06-29-2025 Globulin (S) [Mass/Vol] 2.6 g/dL 2.2-4.2 [facility] Serum glucose measurement (m ass/volume)Ordered By: Che Aguilar on 06-29-2025 Glucose [Mass/Vol] 107 mg/dL High 70-99 [facility] Serum or plasma C reactive p rotein measurement (mass/volume)Ordered By: Che Aguilar on 06-29-2025 CRP [Mass/Vol] 9.31 mg/L High 0.0-3.0 [facility] Serum or plasma alanine king otransferase (ALT) measurementOrdered By: Che Aguilar on 06-29-2025 ALT [Catalytic activity/Vol] 41 U/L High <35 [facility] Serum or plasma albumin cesia urement (mass/volume)Ordered By: Che Aguilar on 06-29-2025 Albumin [Mass/Vol] 4.3 g/dL 3.5-5.0 [facility] Serum or plasma albumin/glob ulin mass ratioOrdered By: Che Aguilar on 06-29-2025 Albumin/Globulin [Mass ratio] 1.7 {ratio} 0.9-2.4 [facility] Serum or plasma alkaline nathalie sphatase measurementOrdered By: Che Aguilar on 06-29-2025 ALP [Catalytic activity/Vol] 72 U/L 35-104 [facility] Serum or plasma calcium cesia urement (mass/volume)Ordered By: Che Aguilar on 06-29-2025 Calcium [Mass/Vol] 9.7 mg/dL 7.6-11.0 [facility] Serum or plasma urea nitroge n measurement (mass/volume)Ordered By: Che Aguilar on 06-29-2025 Urea nitrogen [Mass/Vol] 14 mg/dL 4-19 [facility] Sodium levelOrdered By: Lucie Aguilar on 06-29-2025 Sodium [Moles/Vol] 138 mmol/L 133-145 [facility] TSH DL <= 0.005 mIU/L QnOrde red By: Che Aguilar on 06-29-2025 TSH Qn 2.700 uIU/mL 0.300-4.200 [facility] Thyroid Stim Hormone (TSH)on 06-29-2025 TSH 2.700 uIU/mL Normal 0.300-4.200 [facility] Comment on above: Performed By: #### L 500.4050, L101.9900, L3100.5475, L501.6710, L501.9520, L100.0100 #### [facility] [address] [place], [address] Total proteinOrdered By: Felipe Aguilar on 06-29-2025 Protein [Mass/Vol] 6.9 g/dL 5.9-8.4 [facility] White blood cell (WBC) count Ordered By: Che Aguilar on 06-29-2025 WBC (Bld) [#/Vol] 6.0 10*3/uL 4.4-11.0 [facility] ANTINUCLEAR ANTIBODIES DIREC Ton 03-16-2025 EVERARDO,DIRECT Negative Normal Negative [facility] Comment on above: Result Comment: Perf ormed at: [facility] [address] [address] [place], [place] [id number] Closing Agent: Jarod Devlin PhD, Phone: [phone] Performed By: #### L 500.4050, L101.9900, L3100.5475, L501.6710, L501.9520, L100.0100 #### [facility] [address] [place], [address] EVERARDO serumOrdered By: Che Aguilar on 03-12-2025 Anti-Nuclear Antibody Screen Negative Negative [facility] Comment on above: Performed at: [email or web address] [id number] [place], [place] [id number] Director: Jarod Devlin PhD, Phone: [phone] Absolute lymphocyte countOrd ered By: Che Aguilar on 03-12-2025 Lymphocytes Auto (Unsp spec) [#/Vol] 2.27 10*3/uL 0.83-4.51 [facility] Absolute neutrophil countOrd ered By: Che Aguilar on 03-12-2025 Neutrophils (Bld) [#/Vol] 1.6 10*3/uL Low 2.0-7.7 [facility] Anion gap in Serum or Plasma Ordered By: Che Aguilar on 03-12-2025 Anion gap [Moles/Vol] 14 mmol/L 5-15 [facility] Automated lymphocyte count a s percentage of total leukocytesOrdered By: Che Aguilar on 03-12-2025 Lymphocytes/100 WBC Auto (Unsp spec) 53.0 % High 19-41 [facility] BUN/creatinine ratioOrdered By: Che Aguilar on 03-12-2025 Urea nitrogen/Creatinine [Mass ratio] 10.4 mg/mg 10-20 [facility] Basophil percentageOrdered B y: Che Aguilar on 03-12-2025 Basophils/100 WBC (Bld) 0.7 % 0-1 [facility] Bilirubin, totalOrdered By: Che Aguilar on 03-12-2025 Bilirubin [Mass/Vol] 0.98 mg/dL 0.00-1.30 [facility] CBC W/Diff, Automatedon 02-24 REACTIVE LYMPH 1+ Normal [facility] Comment on above: Performed By: #### L 501.9520, L101.9900, L3100.5475, L500.4050, L100.0100, L501.6710 #### [facility] [address] [place], [address] CRPon 03-12-2025 C-REACTIVE PROT 22.10 mg/L High 0.0-3.0 [facility] Comment on above: Performed By: #### L 501.9520, L101.9900, L3100.5475, L500.4050, L100.0100, L501.6710 #### [facility] [address] [place], [place], [address] CRP [Mass/Vol]Ordered By: Ermias Aguilar on 03-12-2025 C-Reactive Protein Extended Range 22.10 mg/L High 0.0-3.0 [facility] Carbon dioxide, total [Moles /volume] in Central venous bloodOrdered By: Che Aguilar on 03-12-2025 CO2 [Moles/Vol] 22.5 mmol/L 21.0-32.0 [facility] Chloride assayOrdered By: Ermias Aguilar on 03-12-2025 Chloride [Moles/Vol] 102 mmol/L 98-108 [facility] Comprehensive Metabolic Prof ilon 03-12-2025 Albumin [Mass/Vol] 4.2 g/dL Normal 3.5-5.0 [facility] Comment on above: Performed By: #### L 501.9520, L101.9900, L3100.5475, L500.4050, L100.0100, L501.6710 #### [facility] [address] [place], [address] Albumin/Globulin [Mass ratio] 1.6 {ratio} Normal 0.9-2.4 [facility] Comment on above: Performed By: #### L 501.9520, L101.9900, L3100.5475, L500.4050, L100.0100, L501.6710 #### [facility] [address] [place], [address] ALK PHOS 81 U/L Normal 35-104 [facility] Comment on above: Performed By: #### L 501.9520, L101.9900, L3100.5475, L500.4050, L100.0100, L501.6710 #### [facility] [address] [place], [address] ALT [Catalytic activity/Vol] 88 U/L High <=34 [facility] Comment on above: Performed By: #### L 501.9520, L101.9900, L3100.5475, L500.4050, L100.0100, L501.6710 #### [facility] [address] [place], [address] AST [Catalytic activity/Vol] 81 U/L High <=31 [facility] Comment on above: Performed By: #### L 501.9520, L101.9900, L3100.5475, L500.4050, L100.0100, L501.6710 #### [facility] [address] [place], [address] Bilirubin [Mass/Vol] 0.98 mg/dL Normal 0.00-1.30 [facility] Comment on above: Performed By: #### L 501.9520, L101.9900, L3100.5475, L500.4050, L100.0100, L501.6710 #### [facility] [address] [place], [address] BUN/CRE 10.4 RATIO Normal 10-20 [facility] Comment on above: Performed By: #### L 501.9520, L101.9900, L3100.5475, L500.4050, L100.0100, L501.6710 #### [facility] [address] [place], [address] Calcium [Mass/Vol] 9.3 mg/dL Normal 7.6-11.0 [facility] Comment on above: Performed By: #### L 501.9520, L101.9900, L3100.5475, L500.4050, L100.0100, L501.6710 #### [facility] [address] [place], [address] Chloride [Moles/Vol] 102 mmol/L Normal 98-108 [facility] Comment on above: Performed By: #### L 501.9520, L101.9900, L3100.5475, L500.4050, L100.0100, L501.6710 #### [facility] [address] [place], [address] CO2 [Moles/Vol] 22.5 mmol/L Normal 21.0-32.0 [facility] Comment on above: Performed By: #### L 501.9520, L101.9900, L3100.5475, L500.4050, L100.0100, L501.6710 #### [facility] [address] [place], [address] Creatinine [Mass/Vol] 0.78 mg/dL Normal 0.70-1.20 [facility] Comment on above: Performed By: #### L 501.9520, L101.9900, L3100.5475, L500.4050, L100.0100, L501.6710 #### [facility] [address] [place], [address] GAP 14 Normal 5-15 [facility] Comment on above: Performed By: #### L 501.9520, L101.9900, L3100.5475, L500.4050, L100.0100, L501.6710 #### [facility] [address] [place], [address] GFR/1.73 sq M.predicted among non-blacks MDRD (S/P/Bld) [Vol rate/Area] 109 mL/min/{1.73_m2} Normal >60 [facility] Comment on above: Result Comment: mL/m in/1.73m2 CKD-EPI Creatinine Equation (2020) Performed By: #### L 501.9520, L101.9900, L3100.5475, L500.4050, L100.0100, L501.6710 #### [facility] [address] [place], [address] Globulin (S) [Mass/Vol] 2.6 g/dL Normal 2.2-4.2 [facility] Comment on above: Performed By: #### L 501.9520, L101.9900, L3100.5475, L500.4050, L100.0100, L501.6710 #### [facility] [address] [place], [address] Glucose [Mass/Vol] 108 mg/dL High 70-99 [facility] Comment on above: Performed By: #### L 501.9520, L101.9900, L3100.5475, L500.4050, L100.0100, L501.6710 #### [facility] [address] [place], [address] Potassium [Moles/Vol] 3.9 mmol/L Normal 3.3-5.1 [facility] Comment on above: Performed By: #### L 501.9520, L101.9900, L3100.5475, L500.4050, L100.0100, L501.6710 #### [facility] [address] [place], [address] Sodium [Moles/Vol] 138 mmol/L Normal 133-145 [facility] Comment on above: Performed By: #### L 501.9520, L101.9900, L3100.5475, L500.4050, L100.0100, L501.6710 #### [facility] [address] [place], [address] T PROT 6.8 g/dL Normal 5.9-8.4 [facility] Comment on above: Performed By: #### L 501.9520, L101.9900, L3100.5475, L500.4050, L100.0100, L501.6710 #### [facility] [address] [place], [address] Urea nitrogen [Mass/Vol] 8 mg/dL Normal 4-19 [facility] Comment on above: Performed By: #### L 501.9520, L101.9900, L3100.5475, L500.4050, L100.0100, L501.6710 #### [facility] [address] [place], [address] Eosinophil percentageOrdered By: Che Aguilar on 03-12-2025 Eosinophils/100 WBC (Bld) 0.9 % 0-5 [facility] Erythrocyte Sed Rateon 03-12 SED RATE 10 mm/hr Normal 0-30 [facility] Comment on above: Performed By: #### L 501.9520, L101.9900, L3100.5475, L500.4050, L100.0100, L501.6710 #### [facility] [address] [place], [address] Erythrocyte distribution wid th (RBC) [Ratio]Ordered By: Che Aguilar on 03-12-2025 Erythrocyte distribution width (RBC) [Entitic vol] 42.2 fL 35.1-43.9 [facility] Erythrocyte distribution wid th ratioOrdered By: Che Aguilar on 03-12-2025 Erythrocyte distribution width (RBC) [Ratio] 13.6 % 11.6-14.6 [facility] Erythrocyte distribution wid th standard deviationOrdered By: Che Aguilar on 03-12-2025 Erythrocyte distribution width (RBC) [Ratio] 42.2 fl 35.1-43.9 [facility] Erythrocyte sedimentation ra teOrdered By: Che Aguilar on 03-12-2025 ESR (Bld) [Velocity] 10 mm/h 0-30 [facility] GFR/1.73 sq M.predicted emi g non-blacks MDRD (S/P/Bld) [Vol rate/Area]Ordered By: Che Aguilar on 03-12-2025 Estimated GFR (MDRD) Non-Af Amer 109 >60 [facility] Comment on above: mL/min/1.73m2 CKD-EP I Creatinine Equation (2020) Glomerular filtration rate ( GFR) estimation/1.73 sq m using serum, plasma, or whole bOrdered By: Che Aguilar on 03-12-2025 GFR/1.73 sq M.predicted among non-blacks MDRD (S/P/Bld) [Vol rate/Area] 109 mL/min/{1.73_m2} >60 [facility] Comment on above: mL/min/1.73m2 CKD-EP I Creatinine Equation (2020) Hematocrit Auto (Bld) [Volum e fraction]Ordered By: Che Aguilar on 03-12-2025 Hematocrit (Bld) [Volume fraction] 38.7 % 37-47 [facility] Hemoglobin measurementOrdere d By: Che Aguilar on 03-12-2025 Hemoglobin (Bld) [Mass/Vol] 13.0 g/dL 12.0-15.0 [facility] Immature granulocytes/100 WB C Auto (Bld)Ordered By: Che Aguilar on 03-12-2025 Immature granulocytes/100 WBC (Bld) 0.500 % 0.0-0.9 [facility] Comment on above: IG% - Immature Granu locytes (promyelocytes, myelocytes and metamyelocytes) > 1% indicates that a LEFT SHIFT is Present. Laboratory - Chemistry and C hemistry - challengeOrdered By: Che Aguilar on 03-12-2025 AST [Catalytic activity/Vol] 81 U/L High <32 [facility] Lymphocytes Auto (Unsp spec) [#/Vol]Ordered By: Che Aguilar on 03-12-2025 Lymphocytes (Bld) [#/Vol] 2.27 10*3/uL 0.83-4.51 [facility] Lymphocytes/100 WBC Auto (Un sp spec)Ordered By: Che Aguilar on 03-12-2025 Lymphocytes/100 WBC (Bld) 53.0 % High 19-41 [facility] MCV (mean corpuscular volume ) determinationOrdered By: Che Aguilar on 03-12-2025 MCV (RBC) [Entitic vol] 85.1 fL 81-99 [facility] Mean corpuscular hemoglobin (MCH) determinationOrdered By: Che Aguliar on 03-12-2025 MCH (RBC) [Entitic mass] 28.6 pg 27.0-32.0 [facility] Mean corpuscular hemoglobin concentration (MCHC) determinationOrdered By: Che Aguilar on 03-12-2025 MCHC (RBC) [Mass/Vol] 33.6 g/dL 32-36 [facility] Mean platelet volume determi nationOrdered By: Che Aguilar on 03-12-2025 Platelet mean volume (Bld) [Entitic vol] 10.6 fL 6.2-12.0 [facility] Monocyte percentageOrdered B y: Che Aguilar on 03-12-2025 Monocytes/100 WBC (Bld) 6.8 % 0-10 [facility] Neutrophil percentageOrdered By: Che Aguilar on 03-12-2025 Neutrophils/100 WBC (Bld) 38.1 % Low 47-70 [facility] Nucleated red blood cell per centageOrdered By: Che Aguilar on 03-12-2025 Nucleated RBC/100 WBC (Bld) [Ratio] 0 % 0-5 [facility] Platelet countOrdered By: Ermias Aguilar on 03-12-2025 Platelets (Bld) [#/Vol] 169 10*3/uL 150-450 [facility] Potassium (Unsp spec) [Mass/ Vol]Ordered By: Che Aguilar on 03-12-2025 Potassium [Moles/Vol] 3.9 mmol/L 3.3-5.1 [facility] Potassium measurement (mass/ volume)Ordered By: Che Aguilar on 03-12-2025 Potassium (Unsp spec) [Mass/Vol] 3.9 mmol/L 3.3-5.1 [facility] RBC Auto (Bld) [#/Vol]Ordere d By: Che Aguilar on 03-12-2025 RBC (Bld) [#/Vol] 4.55 10*6/uL 4.2-5.4 [facility] Reactive lymphocyte countOrd ered By: Che Aguilar on 03-12-2025 Reactive Lymphocytes 1+ [facility] Serum creatinine measurement (mass/volume)Ordered By: Che Aguilar on 03-12-2025 Creatinine [Mass/Vol] 0.78 mg/dL 0.70-1.20 [facility] Serum globulin measurementOr dered By: Che Aguilar on 03-12-2025 Globulin (S) [Mass/Vol] 2.6 g/dL 2.2-4.2 [facility] Serum glucose measurement (m ass/volume)Ordered By: Che Aguilar on 03-12-2025 Glucose [Mass/Vol] 108 mg/dL High 70-99 [facility] Serum or plasma C reactive p rotein measurement (mass/volume)Ordered By: Che Aguilar on 03-12-2025 CRP [Mass/Vol] 22.10 mg/L High 0.0-3.0 [facility] Serum or plasma alanine king otransferase (ALT) measurementOrdered By: Che Aguilar on 03-12-2025 ALT [Catalytic activity/Vol] 88 U/L High <35 [facility] Serum or plasma albumin cesia urement (mass/volume)Ordered By: Che Aguilar on 03-12-2025 Albumin [Mass/Vol] 4.2 g/dL 3.5-5.0 [facility] Serum or plasma albumin/glob ulin mass ratioOrdered By: Che Aguilar on 03-12-2025 Albumin/Globulin [Mass ratio] 1.6 {ratio} 0.9-2.4 [facility] Serum or plasma alkaline nathalie sphatase measurementOrdered By: Che Aguilar on 03-12-2025 ALP [Catalytic activity/Vol] 81 U/L 35-104 [facility] Serum or plasma calcium cesia urement (mass/volume)Ordered By: Che Aguilar on 03-12-2025 Calcium [Mass/Vol] 9.3 mg/dL 7.6-11.0 [facility] Serum or plasma urea nitroge n measurement (mass/volume)Ordered By: Che Aguilar on 03-12-2025 Urea nitrogen [Mass/Vol] 8 mg/dL 4-19 [facility] Sodium levelOrdered By: Lucie Aguilar on 03-12-2025 Sodium [Moles/Vol] 138 mmol/L 133-145 [facility] TSH DL <= 0.005 mIU/L QnOrde red By: Che Aguilar on 03-12-2025 Thyroid Stimulating Hormone (TSH) 2.580 uIU/mL 0.300-4.200 [facility] TSH Qn 2.580 uIU/mL 0.300-4.200 [facility] Thyroid Stim Hormone (TSH)on 03-12-2025 TSH 2.580 uIU/mL Normal 0.300-4.200 [facility] Comment on above: Performed By: #### L 500.4050, L101.9900, L3100.5475, L501.6710, L501.9520, L100.0100 #### [facility] [address] [place], [address] Total proteinOrdered By: Felipe Aguilar on 03-12-2025 Protein [Mass/Vol] 6.8 g/dL 5.9-8.4 [facility] White blood cell (WBC) count Ordered By: Che Aguilar on 03-12-2025 WBC (Bld) [#/Vol] 4.3 10*3/uL Low 4.4-11.0 [facility] Comp Metabolic Profon 2022 Albumin [Mass/Vol] 4.7 g/dL Normal 3.5-5.2 [facility] Comment on above: Performed By: #### C P #### [facility] [address] [place], [place] [phone] Closing Agent: Claudio Rico MD Albumin/Glob Ratio 1.7 Normal 1.0-2.5 [facility] Comment on above: Performed By: #### C P #### [facility] [address] [place], [place] [phone] Closing Agent: Claudio Rico MD Alkaline Phos 75 U/L Normal 35-104 [facility] Comment on above: Performed By: #### C P #### [facility] [address] [place], [place] [id number] Closing Agent: Claudio Rico MD ALT [Catalytic activity/Vol] 21 U/L Normal 5-33 [facility] Comment on above: Performed By: #### C P #### [facility] [address] [place], [place] [address] Closing Agent: Claudio Rico MD Anion gap [Moles/Vol] 10 mmol/L Normal 9-17 [facility] Comment on above: Performed By: #### C P #### [facility] [address] [place], [place] [phone] Closing Agent: Claudio Rico MD AST [Catalytic activity/Vol] 21 U/L Normal <32 [facility] Comment on above: Performed By: #### C P #### [facility] [address] [place], [place] [phone] Closing Agent: Claudio iRco MD Bilirubin [Mass/Vol] 0.9 mg/dL Normal 0.3-1.2 [facility] Comment on above: Performed By: #### C P #### [facility] [address] [place], [place] [address] Closing Agent: Claudio Rico MD BUN/CRE Ratio 19 Normal 9-20 [facility] Comment on above: Performed By: #### C P #### [facility] [address] [place] [phone] Closing Agent: Claudio Rico MD Calcium [Mass/Vol] 9.7 mg/dL Normal 8.6-10.4 [facility] Comment on above: Performed By: #### C P #### [facility] [address] [place], [place] [phone] Closing Agent: Claudio Rico MD Chloride [Moles/Vol] 104 mmol/L Normal 98-107 [facility] Comment on above: Performed By: #### C P #### [facility] [address] [place], [place] [address] Closing Agent: Claudio Rico MD CO2 [Moles/Vol] 27 mmol/L Normal 20-31 [facility] Comment on above: Performed By: #### C P #### [facility] [address] [place], [place] [phone] Closing Agent: Claudio Rico MD Creatinine [Mass/Vol] 0.67 mg/dL Normal 0.50-0.90 [facility] Comment on above: Performed By: #### C P #### [facility] [address] [place], [place] [phone] Closing Agent: Claudio Rico MD GFR/1.73 sq M.predicted among non-blacks MDRD (S/P/Bld) [Vol rate/Area] mL/min/{1.73_m2} Normal >60 [facility] Comment on above: Result Comment: These [...] secretion. Performed By: #### C P #### [facility] [address] [place], [place] [phone] Closing Agent: Claudio Rico MD Glucose [Mass/Vol] 88 mg/dL Normal 70-99 [facility] Comment on above: Performed By: #### C P #### [facility] [address] [place], [place] [address] Closing Agent: Claudio Rico MD Potassium [Moles/Vol] 4.5 mmol/L Normal 3.7-5.3 [facility] Comment on above: Performed By: #### C P #### [facility] [address] [place], [place] [phone] Closing Agent: Claudio Rico MD Protein [Mass/Vol] 7.5 g/dL Normal 6.4-8.3 [facility] Comment on above: Performed By: #### C P #### [address] [place], [place] [address] Closing Agent: Claudio Rico MD Sodium [Moles/Vol] 141 mmol/L Normal 135-144 [facility] Comment on above: Performed By: #### C P #### [facility] [address] [place] [address] Closing Agent: Claudio Rico MD Urea nitrogen [Mass/Vol] 13 mg/dL Normal 6-20 [facility] Comment on above: Performed By: #### C P #### [facility] [address] [place], [place] [phone] Closing Agent: Claudio Rico MD [facility] Metabolic Pane [facility] 04-27-2023 Albumin [Mass/Vol] 4.7 g/dL 3.5 - 5.2 g/dL [facility] Albumin/Globulin [Mass ratio] 1.7 {ratio} 1.0 - 2.5 [facility] ALP [Catalytic activity/Vol] 75 U/L 35 - 104 U/L [facility] ALT [Catalytic activity/Vol] 21 U/L 5 - 33 U/L [facility] Anion gap [Moles/Vol] 10 mmol/L 9 - 17 mmol/L [facility] AST [Catalytic activity/Vol] 21 U/L NINF - 32 U/L [facility] Bilirubin [Mass/Vol] 0.9 mg/dL 0.3 - 1 .2 mg/dL [facility] Calcium [Mass/Vol] 9.7 mg/dL 8.6 - 10. 4 mg/dL [facility] Chloride [Moles/Vol] 104 mmol/L 98 - 10 7 mmol/L [facility] CO2 [Moles/Vol] 27 mmol/L 20 - 31 mmol/L [facility] Creatinine [Mass/Vol] 0.67 mg/dL 0.50 - 0.90 mg/dL [facility] GFR/1.73 sq M.predicted MDRD (S/P/Bld) [Vol rate/Area] - PINF [facility] Comment on above: These results are [...] [Mass/Vol] 88 mg/dL 70 - 99 mg/dL [facility] Potassium [Moles/Vol] 4.5 mmol/L 3.7 - 5.3 mmol/L [facility] Protein [Mass/Vol] 7.5 g/dL 6.4 - 8.3 g/dL [facility] Sodium [Moles/Vol] 141 mmol/L 135 - 144 mmol/L [facility] Urea nitrogen [Mass/Vol] 13 mg/dL 6 - 20 mg/d L [facility] Urea nitrogen/Creatinine [Mass ratio] 19 mg/mg 9 - 20 [facility] HCG, ,Urineon 04-13 Beta HCG ( test) Ql (U) Negative Normal NEG [facility] Comment on above: Result Comment: Spec imens with hCG levels near the threshold of the test (25 mIU/mL) may give a negative or indeterminate result. In such cases, another test should be performed with a new specimen in 48-72 hours. If early is suspected clinically in this setting, correlation with quantitative serum b-hCG level is suggested. [facility] has confirmed the use of plasma for this test. This has not been cleared or approved by the U.S. Food and Drug Administration. The FDA has determined that such clearance is not necessary. Performed By: #### U HCG #### [facility] [address] [place] [address] Closing Agent: Claudio Rico MD CT HEAD WO CONTRASTon [...] Peter Gaytan MD 10/03/22 Final result Normal [facility] No acute intracranial abnormality. [facility] CONSOLIDATED EXAMINATION: CT OF THE HEAD WITHOUT CONTRAST [...] of the visualized skull or soft tissues. [facility] Peter Gaytan MD - 10/03/2022 EXAMINATION: CT [...] soft tissues. IMPRESSION: No acute intracranial abnormality. [employer] Work Phone: CT HEAD WO CONTRASTOrdered B y: Peter Gaytan on 10-03-2022 [employer] Phone: CT HEAD WO CONTRASTon 2021 Radiology Study observation (narrative) [facility] Work Phone: Comp Metabolic Profon 2021 (cont.) Normal [facility] Comment on above: Result Comment: Aver age GFR for 20-29 years old: 116 mL/min/1.73sq m Chronic Kidney Disease: <60 mL/min/1.73sq m Kidney failure: <15 mL/min/1.73sq m eGFR calculated using average adult body mass. Additional eGFR calculator available at: http://www.[employer]/multiple_crcl_2012.htm Performed By: #### C P #### [facility] [address] [place] [address] [place] [address] Closing Agent: Claudio Rico MD Albumin [Mass/Vol] 4.4 g/dL Normal 3.5-5.2 [facility] Comment on above: Performed By: #### C P #### [facility] [address] [place], [place] [phone] Closing Agent: Claudio Rico MD Albumin/Glob Ratio 1.7 Normal 1.0-2.5 [facility] Comment on above: Performed By: #### C P #### [facility] [address] [place], [place] [phone] Closing Agent: Claudio Rico MD Alkaline Phos 55 U/L Normal 35-104 [facility] Comment on above: Performed By: #### C P #### [facility] [address] [place] [address] Closing Agent: Claudio Rico MD ALT [Catalytic activity/Vol] 25 U/L Normal 5-33 [facility] Comment on above: Performed By: #### C P #### [facility] [address] [place], [place] [phone] Closing Agent: Claudio Rico MD Anion gap [Moles/Vol] 8 mmol/L Low 9-17 [facility] Comment on above: Performed By: #### C P #### [facility] [address] [place], [place] [phone] Closing Agent: Claudio Rico MD AST [Catalytic activity/Vol] 18 U/L Normal <32 [facility] Comment on above: Performed By: #### C P #### [facility] [address] [place], [place] [phone] Closing Agent: Claudio Rico MD Bilirubin [Mass/Vol] 0.48 mg/dL Normal 0.3-1.2 [facility] Comment on above: Performed By: #### C P #### [facility] [address] [place], [place] [phone] Closing Agent: Claudio Rico MD BUN/CRE Ratio 16 Normal 9-20 [facility] Comment on above: Performed By: #### C P #### [facility] [address] [place], [place] [phone] Closing Agent: Claudio Rico MD Calcium [Mass/Vol] 9.6 mg/dL Normal 8.6-10.4 [facility] Comment on above: Performed By: #### C P #### [facility] [address] [place], [place] [address] Closing Agent: Claudio Rico MD Chloride [Moles/Vol] 98 mmol/L Normal 98-107 [facility] Comment on above: Performed By: #### C P #### [facility] [address] [place], [place] [phone] Closing Agent: Claudio Rico MD CO2 [Moles/Vol] 28 mmol/L Normal 20-31 [facility] Comment on above: Performed By: #### C P #### [facility] [address] [place], [place] [phone] Closing Agent: Claudio Rico MD Creatinine [Mass/Vol] 0.70 mg/dL Normal 0.50-0.90 [facility] Comment on above: Performed By: #### C P #### [facility] [address] [place], [place] [address] Closing Agent: Claudio Rico MD GFR, Amer >60 Normal >60 [facility] Comment on above: Performed By: #### C P #### [facility] [address] [place], [place] [address] Closing Agent: Claudio Rico MD GFR,non Amer >60 Normal >60 [facility] Comment on above: Performed By: #### C P #### [facility] [address] [place], [place] [address] Closing Agent: Clauido Rico MD Glucose [Mass/Vol] 97 mg/dL Normal 70-99 [facility] Comment on above: Performed By: #### C P #### [facility] [address] [place], [place] [address] Closing Agent: Claudio Rico MD Potassium [Moles/Vol] 4.2 mmol/L Normal 3.7-5.3 [facility] Comment on above: Performed By: #### C P #### [facility] [address] [place], [place] [phone] Closing Agent: Claudio Rico MD Protein [Mass/Vol] 7.0 g/dL Normal 6.4-8.3 [facility] Comment on above: Performed By: #### C P #### [facility] [address] [place], [place] [phone] Closing Agent: Claudio Rico MD Sodium [Moles/Vol] 134 mmol/L Low 135-144 [facility] Comment on above: Performed By: #### C P #### [facility] [address] [place], [place] [address] Closing Agent: Claudio Rico MD Staging: Normal [facility] Comment on above: Result Comment: Stag e 1: Some kidney damage normal GFR Stage 2: Mild kidney damage GFR 60-89 Stage 3: Moderate kidney damage GFR 30-59 Stage 4: Severe kidney damage GFR 15-29 Stage 5: Severe kidney damage GFR <15 ESRD - chronic treatment by dialysis or transplant Performed By: #### C P #### [facility] [address] [place] [address] Closing Agent: Claudio Rico MD Urea nitrogen [Mass/Vol] 11 mg/dL Normal 6-20 [facility] Comment on above: Performed By: #### C P #### [facility] [address] [place] [address] Closing Agent: Claudio Rico MD [facility] Metabolic Pane [facility] 07-13-2022 Albumin [Mass/Vol] 4.4 g/dL 3.5 - 5.2 g/dL [facility] Albumin/Globulin [Mass ratio] 1.7 {ratio} 1 - 2.5 [facility] ALP (Bld) [Catalytic activity/Vol] 55 U/L 35 - 104 U/L [facility] ALT [Catalytic activity/Vol] 25 U/L 5 - 33 U/L [facility] Anion gap [Moles/Vol] 8 mmol/L Low 9 - 17 mmol/L [facility] AST [Catalytic activity/Vol] 18 U/L NINF - 32 U/L [facility] Bilirubin [Mass/Vol] 0.48 mg/dL 0.3 - 1 .2 mg/dL [facility] Calcium [Mass/Vol] 9.6 mg/dL 8.6 - 10. 4 mg/dL [facility] Chloride [Moles/Vol] 98 mmol/L 98 - 10 7 mmol/L [facility] CO2 [Moles/Vol] 28 mmol/L 20 - 31 mmol/L [facility] Creatinine [Mass/Vol] 0.7 mg/dL 0.5 - 0.9 mg/dL [facility] Free PSA/Total PSA [Mass fraction] 7.0 g/dL 6.4 - 8.3 g/dL [facility] GFR >60 60 - PI NF mL/min [facility] GFR Non- >60 60 - PINF mL/min [facility] Glucose [Mass/Vol] 97 mg/dL 70 - 99 mg/dL [facility] Interpretation and review of laboratory results Abnormal [facility] Potassium [Moles/Vol] 4.2 mmol/L 3.7 - 5.3 mmol/L [facility] Sodium [Moles/Vol] 134 mmol/L Low 135 - 144 mmol/L [facility] Urea nitrogen (BldV) [Mass/Vol] 11 mg/dL 6 - 20 mg/dL [facility] Urea nitrogen/Creatinine (Bld) [Mass ratio] 16 9 - 20 [facility] Laboratory - Chemistry and C hemistry - challengeon 07-13-2022 GFR/1.73 sq M.predicted MDRD (S/P/Bld) [Vol rate/Area] [facility] Comment on above: Average GFR for 20-2 9 years old: 116 mL/min/1.73sq m Chronic Kidney Disease: <60 mL/min/1.73sq m Kidney failure: <15 mL/min/1.73sq m eGFR calculated using average adult body mass. Additional eGFR calculator available at: http://www.Homeloc/multiple_crcl_2012.htm Stage 1: Some kidney damage normal GFR Stage 2: Mild kidney damage GFR 60-89 Stage 3: Moderate kidney damage GFR 30-59 Stage 4: Severe kidney damage GFR 15-29 Stage 5: Severe kidney damage GFR <15 ESRD - chronic treatment by dialysis or transplant T3, FreeOrdered By: Rick fowler on 05-18-2021 Free T3 [Mass/Vol] 2.99 pg/mL 2.02 - 4. 43 pg/mL [facility] Phone: [employer] Phone: [id number] By: Rick Purvis on 05-18-2021 T4 [Mass/Vol] 6.2 ug/dL 4.5 - 10.9 ug/dL [employer] Phone: [employer] Work Phone: CBC Auto DifferentialOrdered By: Rick Purvis on 05-17-2021 [employer] # 0.13 [employer] [facility] Work Phone: Absolute Immature Granulocyte <0.03 [employer] Work Phone: Absolute Lymph # 1.85 [employer] [facility] Work Phone: Absolute Lamar # 0.39 [employer] [facility] Work Phone: Basophils (Bld) [#/Vol] 0.04 10*3/uL [employer] Work Phone: Basophils/100 WBC (Bld) 1 % 0 - 2 % [facility] Phone: Differential Type NOT REPORTED [employer] Phone: Eosinophils/100 WBC (Bld) 3 % 1 - 4 % [employer] Phone: Hematocrit (Bld) [Volume fraction] 39.9 % 36.3 - 47.1 % [employer] Phone: Hemoglobin.gastrointesti nal spec 1 Ql (Stl) 12.9 g/dL 11.9 - 15.1 g/dL [employer] Phone: Immature granulocytes/100 WBC (Bld) 0 % 0 [employer] Phone: Interpretation and review of laboratory results Abnormal [employer] Phone: Lymphocytes/100 WBC (Bld) 41 % 25 - 45 % [employer] Phone: MCH (RBC) [Entitic mass] 29.5 pg 25. 2 - 33.5 pg [employer] Phone: MCHC (RBC) [Mass/Vol] 32.3 g/dL 28.4 - 34.8 g/dL [employer] Phone: MCV (RBC) [Entitic vol] 91.1 fL 82.6 - 102.9 fL [employer] Phone: Monocytes/100 WBC (Bld) 9 % High 2 - 8 % [facility] Work Phone: NRBC Automated 0.0 0.0 per 100 WBC [employer] Phone: Platelet distribution width (Bld) [Ratio] 12.9 % 11.8 - 14.4 % [employer] Phone: Platelet Estimate NOT REPORTED [employer] Phone: Platelet mean volume (Bld) [Entitic vol] 10.1 fL 8.1 - 13.5 fL [employer] Phone: Platelets (Bld) [#/Vol] 244 10*3/uL [employer] Phone: RBC (Bld) [#/Vol] 4.38 10*6/uL 3.95 - 5.1 1 m/uL [employer] Work Phone: RBC (Bld) [#/Vol] NOT REPORTED [employer] Phone: Segmented neutrophils/100 WBC (Bld) 46 % 34 - 64 % [employer] Phone: Segs [employer] Work Phone: WBC (Bld) [#/Vol] 4.6 10*3/uL [employer] Work Phone: WBC (Bld) [#/Vol] NOT REPORTED [employer] Phone: [employer] Work Phone: Comprehensive Metabolic Pane lOrdered By: Rick Purvis on 05-17-2021 Albumin [Mass/Vol] 4.1 g/dL 3.5 - 5.2 g/dL [employer] Phone: Albumin/Globulin [Mass ratio] 1.4 {ratio} [employer] Phone: ALP (Bld) [Catalytic activity/Vol] 62 U/L 35 - 104 U/L [employer] Phone: ALT [Catalytic activity/Vol] 11 U/L 5 - 33 U/L [employer] Phone: Anion gap [Moles/Vol] 9 mmol/L 9 - 17 mmol/L [employer] Phone: AST [Catalytic activity/Vol] 13 U/L <32 [employer] Phone: Bilirubin [Mass/Vol] 1.08 mg/dL 0.3 - 1 .2 mg/dL [employer] Phone: Calcium [Mass/Vol] 10.0 mg/dL 8.6 - 10. 4 mg/dL [employer] Phone: Chloride [Moles/Vol] 106 mmol/L 98 - 10 7 mmol/L [employer] Phone: CO2 [Moles/Vol] 26 mmol/L 20 - 31 mmol/L [employer] Phone: Creatinine [Mass/Vol] 0.73 mg/dL 0.50 - 0.90 mg/dL [employer] Phone: Free PSA/Total PSA [Mass fraction] 7.1 g/dL 6.4 - 8.3 g/dL [employer] Phone: GFR >60 >60 mL/min [employer] Phone: GFR Non- >60 >60 mL/min [employer] Phone: Glucose [Mass/Vol] 80 mg/dL 70 - 99 mg/dL [employer] Phone: Potassium [Moles/Vol] 3.9 mmol/L 3.7 - 5.3 mmol/L [employer] Phone: Sodium [Moles/Vol] 141 mmol/L 135 - 144 mmol/L [employer] Phone: Urea nitrogen (BldV) [Mass/Vol] 13 mg/dL 6 - 20 mg/dL [employer] Phone: Urea nitrogen/Creatinine (Bld) [Mass ratio] 18 [employer] Phone: Laboratory - Chemistry and C hemistry - challengeOrdered By: Rick Purvis on 05-17-2021 GFR/1.73 sq M.predicted MDRD (S/P/Bld) [Vol rate/Area] [employer] Phone: Comment on above: Average GFR for 20-2 9 years old: 116 mL/min/1.73sq m Chronic Kidney Disease: <60 mL/min/1.73sq m Kidney failure: <15 mL/min/1.73sq m eGFR calculated using average adult body mass. Additional eGFR calculator available at: http://www.Homeloc/multiple_crcl_2012.htm Stage 1: Some kidney damage normal GFR Stage 2: Mild kidney damage GFR 60-89 Stage 3: Moderate kidney damage GFR 30-59 Stage 4: Severe kidney damage GFR 15-29 Stage 5: Severe kidney damage GFR <15 ESRD - chronic treatment by dialysis or transplant No Panel InformationOrdered By: Rick Purvis on 05-17-2021 [employer] Phone: TSH without ReflexOrdered By : Rick Purvis on 05-17-2021 TSH Qn 1.69 m[IU]/L [employer] Phone: US PELVIS COMPLETEOrdered By : Florencia Arboleda on 05-05-2021 Negative transabdominal pelvic ultrasound. [employer] Phone: EXAMINATION: PELVIC ULTRASOUND 05/05/2021 TECHNIQUE: Transabdominal [...] Free Fluid: No evidence of free fluid. [employer] Work Phone: Tae, [facility] Incoming Radiant Results From [employer] - 05/05/2021 10:56 AM EDT EXAMINATION: PELVIC [...] free fluid. IMPRESSION: Negative transabdominal pelvic ultrasound. [employer] Work Phone: [employer] Phone: Encounters Encounter Date Encounter Type Care Provider Facility Start: 07-06-2025 Encounter for genera l adult medical examination without abnormal findings Che Aguilar [facility] Start: 06-29-2025 End: 06-29-[address] Che Aguilar MD Work Phone: -Laboratory Barron Flores [facility] Start: 06-29-2025 End: 06-29-[address] Che Aguilar MD -Mercedes Flores [facility] Start: 06-29-2025 End: 06-29-2025 ambulatory Che Aguilar Facility:[facility] Start: 03-12-2025 End: 03-12-[address] Che Aguilar MD Work Phone: [facility] Work Phone: Start: 03-12-2025 End: 03-12-[address] Che Aguilar MD -Laboratory, Barron Flores [facility] Start: 03-12-2025 End: 03-12-2025 ambulatory Che Aguilar Facility:[facility] Start: 04-27-2023 End: 04-28-2023 ambulatory RICK PURVIS [facility] Start: 04-27-2023 End: 04-27-2023 Subsequent hospital visit by physician Rick Purvis DO Work Phone: [facility] Start: 04-13-2023 End: 04-13-2023 ambulatory VEDA GILL [facility] Start: 10-02-2022 End: 10-05-2022 ambulatory RICK PURVIS [facility] Start: 10-02-2022 End: 10-04-2022 Subsequent hospital visit by physician [facility] Cat Scan Room [facility] CT Scan Comment on above: Nonintractable heada juli, unspecified chronicity pattern, unspecified headache type Start: 07-13-2022 End: 07-14-2022 ambulatory RICK PURVIS [facility] Start: 07-13-2022 End: 07-14-2022 Encounter for general adult medical examination without abnormal findings [facility] Manuela [place] Start: 07-13-2022 End: 07-13-2022 Subsequent hospital visit by physician Rick Purvis DO Work Phone: [facility] Start: 05-17-2021 End: 05-17-2021 Subsequent hospital visit by physician Rick Purvis DO Work Phone: [facility] Start: 05-05-2021 End: 05-07-2021 Subsequent hospital visit by physician [facility] Ultrasound Room 2 At [facility] Ultrasound Comment on above: Right lower quadrant abdominal pain Start: 12-08-2020 End: 12-08-2020 Subsequent hospital visit by physician Nena Covid Screening Schedule [facility] Covid Screening Comment on above: Arrived Start: 11-09-2020 End: 11-09-2020 Subsequent hospital visit by physician [facility] Covid Screening Schedule [facility] Cov[facility] Screening Comment on above: Arrived Procedures Date Procedure Procedure Detail Performing Clinician Start: 06-29-[address] Felipe Aguilar MD Work Phone: Comment on above: Performed at: [place] [id number] Director: Jarod Devlin PhD, Phone: [phone] Start: 03-12-[address] Felipe Aguilar MD Work Phone: Comment on above: Performed at: [facility] [place] [address] [id number] Director: Jarod Devlin PhD, Phone: [phone] Start: 03-12-[address] Che Aguilar MD Work Phone: Start: 04-27-2023 Comprehensive metabo lic panel Rick Manuela Hyun DO Work Phone: Start: 10-02-2022 Ct head/brain w/o co ntrast material Rick Manuela Hyun DO Work Phone: Start: 07-13-2022 Comprehensive metabo lic panel Rick Manuela Hyun DO Work Phone: Start: 05-17-2021 Comprehensive metabo lic panel Rick Manuela Hyun DO Work Phone: Start: 05-05-2021 Us pelvic nonobstetr ic real-time image complete Florencia Arboleda HEALTH DATA ADMINISTRATOR - CNM Work Phone: Plan of Treatment Date Care Activity Detail Author Start: 04-10-2024 Depression Screen Depression Screen [employer] Start: 06-26-2023 Influenza vaccination Flu vacc ine (Season Ended) [facility] Start: 06-13-2023 Depression Monitoring Depression Mon itoring [employer] Start: 11-29-2022 End: 11-29-2022 Patient encounter procedure 11/29/2022 Office Visit Obstetrics and Gynecology Anjelica Vale PA-C [address] [place] [address] [facility]ST[facility]ICS [facility]YNECOLOGY [facility] Start: 11-17-2022 End: 11-17-2022 Admission to same day surgery center 11/17/2022 Surgery IP Unit Vead Corado, DO [address] [facility] [place] [address] LAPAROSCOPY EXPLORATORY-DIAGNOSTIC, LYSIS OF ADHESIONS, ABLATION OF ENDOMETRIOSIS [facility] OR Comment on above: LAPAROSCOPY EXPLORAT ORY-DIAGNOSTIC, LYSIS OF ADHESIONS, ABLATION OF ENDOMETRIOSIS Start: 11-17-2022 End: 11-17-2022 Laps fulg/exc ovary viscera/peritoneal surface LAPAROSCOPY EXPLORATORY Pelvic pain 11/17/2022 9:01 AM [facility] Start: 11-17-2022 Subsequent hospital visit by physician 11/17/2022 Hospital Encounter IP Unit Veda Corado, DO [address] [facility] [place] [address] [facility] Start: 11-17-2022 End: 11-17-2022 Admission to same day surgery center 11/17/2022 Surgery IP Unit Veda Corado, DO [address] [facility] [place] [address] LAPAROSCOPY EXPLORATORY-DIAGNOSTIC, LYSIS OF ADHESIONS, ABLATION OF ENDOMETRIOSIS [facility] Comment on above: LAPAROSCOPY EXPLORAT ORY-DIAGNOSTIC, LYSIS OF ADHESIONS, ABLATION OF ENDOMETRIOSIS Start: 11-17-2022 End: 11-17-2022 Laps fulg/exc ovary viscera/peritoneal surface LAPAROSCOPY EXPLORATORY Pelvic pain 11/17/2022 7:30 AM [facility] Start: 11-17-2022 Subsequent hospital visit by physician 11/17/2022 Hospital Encounter IP Unit Veda Corado, DO [address] [facility] [place] [address] [facility] Start: 11-14-2022 End: 11-14-2022 Patient encounter procedure 11/14/2022 Office Visit Obstetrics and Gynecology Veda Corado, DO [address] [place] [address] [facility] Start: 07-27-2022 Influenza vaccination Flu vaccine (# 1) [facility] Start: 06-26-2022 Influenza vaccination Flu vaccine (# 1) [facility] Start: 01-10-2022 COVID-19 Vaccine (2 - Pfizer series) COVID-19 Vaccine (2 - Pfizer series) [facility] Start: 2021 Screening for malign ant neoplasm of cervix Pap smear [facility] Start: 07-27-2021 Influenza vaccination Flu vacc ine (Season Ended) [facility] Work Phone: Start: 05-10-2021 End: 05-10-2021 Patient encounter procedure 05/10/2021 Office Visit Obstetrics and Gynecology Florencia Arboleda, KEMAR - JOSIE [address] [place], [place] [id number] [facility] OBSTETRICS & GYNECOLOGY Start: 07-27-2020 Influenza vaccination Flu vaccine (# 1) [place], [place] Start: 2019 DTaP/Tdap/Td vaccine (1 - Tdap) DTaP/Tdap/Td vaccine (1 - Tdap) [place] Start: 2018 Hepatitis C screening Hepatitis C sc reen [facility] Start: 2016 Screening for Chlamy sommer trachomatis [facility] Start: 2015 HIV screening HIV screen [facility] Start: 2012 COVID-19 Vaccine (1) COVID-19 Vaccin e (1) [facility] Work Phone: Start: 2011 DTaP/Tdap/Td vaccine (6 - Tdap) DTaP/Tdap/Td vaccine (6 - Tdap) [facility] Start: 2011 HPV vaccine (1 - 2-d ose series) HPV vaccine (1 - 2-dose series) [facility] Start: 09-20-2006 Varicella vaccine (2 of 2 - 2-dose childhood series) Varicella vaccine (2 of 2 - 2-dose childhood series) [facility] Start: 2001 Varicella vaccine (1 of 2 - 2-dose childhood series) Varicella vaccine (1 of 2 - 2-dose childhood series) [place], [place] Start: 2000 Hepatitis C screening Hepatitis C sc reen [place], [place] End: 12-08-2020 COVID-19 COVID-19 Lab Routine Once for 1 Occurrences starting 12/08/2020 until 12/08/2020 [place] Comment on above: Once for 1 Occurrenc es starting 12/08/2020 until 12/08/2020 COVID-19 COVID-19 Lab Rou darvin 12/08/2020 9:12 AM [place] End: 11-09-2020 Covid-19 Ambulatory Covid-19 Ambulatory Lab Routine Once for 1 Occurrences starting 11/09/2020 until 11/09/2020 [place] Comment on above: Once for 1 Occurrenc es starting 11/09/2020 until 11/09/2020 Covid-19 Ambulatory Covid-19 Amb ulatory Lab Routine 11/09/2020 11:41 AM [place] End: 05-17-2021 T3 T3 Lab Routine Once for 1 Occurrences starting 05/17/2021 until 05/17/2021 [facility] [employer] Work Phone: Comment on above: Once for 1 Occurrenc es starting 05/17/2021 until 05/17/2021 T3 T3 Lab Routine 05/17/2021 1:00 PM EDT [facility] [employer] Phone: Payers Date Payer Category Payer Private Health Insurance [id number] 2025 Self-pay 2021 Unknown [id number] 2020 Unknown [id number] 2000 Unknown [id number] 2000 Unknown [id number] 2000 Unknown [id number] 2000 Unknown [id number] [id number] Private Health Insurance [employer] [id number] Unknown [id number] [id number] Unknown [id number] Social History Date Type Detail Facility Start: 02-10-2016 End: 08-24-2020 Tobacco smoking status [facility] Never smoker [employer] Start: 2000 Sex Assigned At Not on file [place], [place] Start: 04-14-2021 Tobacco use and exposure Never used [employer] Start: 04-14-2021 End: 06-13-2022 Alcohol intake Lifetime non-drinker (finding) [employer] Work Phone: Start: 04-25-2023 Alcohol intake Current drinke r of alcohol (finding) [employer] Phone: Start: 04-10-2023 History SDOH Financial 5 [employer] Phone: Start: 04-10-2023 History SDOH Food Worry 1 [employer] Phone: Start: 04-10-2023 History SDOH Transpo rt Non-Med 2 [employer] Phone: Start: 03-30-2023 Alcohol Comment social [employer] Phone: Start: 08-24-2020 None None [facility] Start: 08-24-2020 - - [facility] Start: 08-24-2020 Non-smoker Non-smoker [facility] Start: 03-16-2025 Sex Female (finding) [facility] Start: 2000 Sex Assigned At Female [facility] Evaluation note Note Date & Type Note Facility Evaluation note Diagnosis Right lower quadrant abdominal pain Abdominal pain, right lower quadrant documented in this encounter [employer] Phone: Evaluation note Note Date & Type Note Facility Evaluation note Diagnosis Nonintractable headache, unspecified chronicity pattern, unspecified headache type Pelvic pain documented in this encounter [employer] Phone: Evaluation note Note Date & Type Note Facility Evaluation note No assessment information availa ble [facility] Work Phone: Reason for referral (narrative) Note Date & Type Note Facility Reason for referral (narrative) No reason for referral information available [facility] Work Phone: Advance Directives No Advanced Directives Records FoundDocuments on File Type Date 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-Advance Directive ACP-Power of 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 Manager Documents on File Type Date 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-Advance Directive ACP-Power of Online 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 Manager Latest Code Status on File Code Status Date Activated Date Inactivated Comments Full Code 04/13/2023 9:44 AM 04/13/2023 3:44 PM Reason for Referral Status Reason Specialty Diagnoses / Procedures Referre d By Contact Referred To Contact Closed Radiology Diagnoses Right lower quadrant abdominal pain Procedures US PELVIS COMPLETE Florencia Arboleda, HEALTH DATA ADMINISTRATOR - CNM [address] [place] [address] Specialty Diagnoses / Procedures Referred By Contac t Referred To Contact Radiology Diagnoses Nonintractable headache, unspecified chronicity pattern, unspecified headache type Procedures CT HEAD WO Rick Ledbetter, DO [address] [place] [address] Referral ID Status Reason Start Date Expiration Date Visits Re quested Visits Authorized [id number] Closed 10/02/2022 10/02/2023 1 1 Summary Purpose Family History No Family History Records FoundNo Family History Records Found Additional Source Comments Reason for Visit (unrecogniz ed section and content) Status Reason Specialty Diagnoses / Procedures Referre d By Contact Referred To Contact Closed Radiology Diagnoses Right lower quadrant abdominal pain Procedures US PELVIS Florencia Bah, HEALTH DATA ADMINISTRATOR - CN [address] [place] [address] Specialty Diagnoses / Procedures Referred By Contac t Referred To Contact Radiology Diagnoses Nonintractable headache, unspecified chronicity pattern, unspecified headache type Procedures CT HEAD WO CONTRAST Rick Purvis, [address] [address] Referral ID Status Reason Start Date Expiration Date Visits Re quested Visits Authorized [id number] Closed 10/02/2022 10/02/2023 1 1 Care Teams (unrecognized sec tion and content) 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 Che Aguilar MD Primary Care Provider Active Team Status: Inactive Member Role Status Dates Dr. Che Aguilar MD Primary Care Provider Active Start: March 12, 2025 End: March 12, 2025 Dr. Che Aguilar MD Attending Provider Active Start: March 12, 2025 End: March 12, 2025 Team Status: Active Member Role/Relationship Status Dates Dr. Che Aguilar MD Primary Care Provider Active Team Status: Inactive Member Role/Relationship Status Dates Dr. Che Aguilar MD Primary Care Provider Active Start: March 12, 2025 End: March 12, 2025 Dr. Che Aguilar MD Attending Provider Active Start: March 12, 2025 End: March 12, 2025 Team Status: Inactive Member Role/Relationship Status Dates Dr. Che Aguilar MD Primary Care Provider Active Start: June 29, 2025 End: June 29, 2025 Dr. Che Aguilar MD Attending Provider Active Start: June 29, 2025 End: June 29, 2025 INFORMATION SOURCE (unrecogn ized section and content) DATE CREATED AUTHOR 05/05/2023 [facility] DATE CREATED AUTHOR 'S ORGANIZ ATION 07/06/2025 [facility] Goals (unrecognized section and content) Goals may be documented in a n alternate sectionGoals may be documented in an alternate section FOR RECORDS PERTAINING TO PATIENTS [...] BE BASED ON THE PRIMARY CLINICAL RECORDS. [employer] provides no warranty or guarantee of the accuracy or completeness of information in this document.
[2025-11-22 22:53] VITALS: BP 150/83; PULSE 67; RESP 18; TEMP 36.5; O2SAT 100
== END 2025-11-22 22:54 | disposition home or self-care (01) ==
PROVIDERS: Emergency Provider Emergency Medicine; PCP Family Medicine; Visit Provider Emergency Medicine
DX: L50.9 Urticaria, unspecified (principal); R03.0 Elevated blood-pressure reading, without diagnosis of hypertension; F41.9 Anxiety disorder, unspecified; F32.A Depression, unspecified; Z79.899 Other long term (current) drug therapy
CPT/HCPCS: 96360; 99283; A4216